=== PATIENT | male | born 1950 | race Caucasian/White ===

== ENCOUNTER 2022-11-01 20:36 | Inpatient (IN) | payer OTHER ==
[2022-11-01] MEDS ORDERED: LACTATED RINGERS SOLUTION 1000 ML INFUS.BAG IV ONE (20:55)
[2022-11-01] MEDS ORDERED: methylPREDNISolone NA SUCC 125 MG/2 ML VIAL IVPB ONE (20:55)
[2022-11-01] MEDS ORDERED: MEROPENEM 1 GM in DEXTROSE 5%-WATER 100 ML IVPB ONE (20:59)
[2022-11-01] MEDS ORDERED: VANCOMYCIN 1 GM in D5W (PRE-DOCKED) 1,000 MG/250 ML (RESTRICTED TO ID ONLY IVPB ONE (20:59)
[2022-11-01] MEDS ORDERED: ALBUTEROL SO4 2.5/IPRATROPIUM 0.5 INH SOL 3 ML VIAL.NEB. NEB ONE (21:05)
[2022-11-01] MEDS ORDERED: MEROPENEM 1 GM VIAL (RESTRICTED TO ID) IVPB ONE (21:05)
[2022-11-01] MEDS ORDERED: methylPREDNISolone NA SUCC 125 MG/2 ML VIAL ONE (21:06)
[2022-11-01] MEDS ORDERED: ASPIRIN 81 MG CHEWABLE TABLETS PO ONE (21:12)
[2022-11-01 21:20] LABS: VENOUS O2 SATURATION 26.2 % (70-80); VENOUS PCO2 56.2 mmHg (38-52); VENOUS PH 7.303 (7.310-7.410)
[2022-11-01] MEDS: ALBUTEROL SO4 2.5/IPRATROPIUM 0.5 INH SOL 3 ML VIAL.NEB. NEB SCH ×2 (21:22→21:40)
[2022-11-01 21:24] LABS: BASO % 0.1 % (0-2.0); EOS % 0.1 % (0-4.5); HEMATOCRIT 34.3 % (35.4-49); HEMOGLOBIN 11.3 GM/dL (11.7-16.9); LYMPH % 1.2 % (8-40); MCH 29.5 pg (25.7-33.7); MCHC 33.1 g/dl (32.0-35.9); MEAN CELL VOLUME 89.2 fl (80-96); MEAN PLT VOLUME 6.6 fl (7.5-11.1); MONO % 0.2 % (3.8-10.2); NEUT % 98.4 % (42.8-82.8); PLATELET COUNT 382 10^3/uL (134-434); RBC 3.85 M/mm3 (4.00-5.60); RDW 15.2 % (11.9-15.9); WHITE BLOOD COUNT 9.2 K/mm3 (4.0-10.0)
[2022-11-01 21:34] LABS: INR 1.93 (0.83-1.09); PROTHROMBIN TIME (PATIENT) 22.2 SEC (9.7-13.0)
[2022-11-01 21:37] LABS: ACTIVATED PTT 31.4 SECONDS (25.2-36.5)
[2022-11-01] MEDS ORDERED: VANCOMYCIN/WATER FOR INJ (PEG) 1,000 MG/200 ML BAG IVPB ONE (21:47)
[2022-11-01 21:50] LABS: ALBUMIN 2.6 g/dl (3.4-5.0); ANISOCYTOSIS 2+; BLOOD UREA NITROGEN 53.4 mg/dL (7-18); CALCIUM 9.1 mg/dL (8.5-10.1); MACROCYTOSIS 0
[2022-11-01] MEDS ORDERED: ACETAMINOPHEN 1000 MG/100 ML BAG IVPB ONE (21:51)
[2022-11-01 21:53] LABS: CREATININE 1.8 mg/dL (0.55-1.3)
[2022-11-01] MEDS ORDERED: ACETAMINOPHEN INJECTION 100 ML IVPB ONE (21:53)
[2022-11-01 21:54] LABS: BILIRUBIN,TOTAL 0.6 mg/dL (0.2-1); TOT PROT 5.9 g/dl (6.4-8.2)
[2022-11-01 21:57] LABS: LACTIC ACID 5.7 mmol/L (0.4-2.0)
[2022-11-01] MEDS ORDERED: DEXTROSE 5%-LACTATED RINGERS 1,000 ML IV SCH ×2 (22:00)
[2022-11-01] MEDS ORDERED: LORazepam 2 MG/ML SDV VIAL IVPUSH ONE (22:32)
[2022-11-01 23:39] LABS: LACTIC ACID 5.4 mmol/L (0.4-2.0)
[2022-11-01] MEDS: NOREPINEPHRINE BITARTRATE/D5W 8 MG/250 ML BAG IVPB SCH (23:57)
[2022-11-02 01:21] LABS: EPI CELLS >36 /uL (0-25.1); HYALINE CASTS 18 /uL (0-3.1); PH,URINE 8.5 (5.0-8.0); URINE APPEARANCE CLOUDY; URINE BACTERIA >9,000 /uL (0-1359); URINE BILIRUBIN NEGATIVE (NEGATIVE); URINE COLOR RED; URINE GLUCOSE (UA) NEGATIVE (NEGATIVE); URINE KETONE NEGATIVE (NEGATIVE); URINE LEUK ESTERASE 2+ (NEGATIVE); URINE NITRITE POSITIVE (NEGATIVE); URINE PROTEIN 2+ (NEGATIVE); URINE UROBILINOGEN 0.2 mg/dL (0.2-1.0); URINE WBC 83 /uL (0-25.8)
[2022-11-02] MEDS ORDERED: LACTATED RINGERS SOLUTION 1000 ML INFUS.BAG IV SCH (03:15)
[2022-11-02 03:34] LABS: URINE RBC 5123.2 /uL (0-23.9)
[2022-11-02] MEDS: HYDROCORTISONE SOD SUCCINATE 100 MG/2 ML VIAL IVPB SCH ×4 (04:06→20:03)
[2022-11-02] MEDS: VASOPRESSIN 40 UNITS/100 ML BAG IV SCH (04:46)
[2022-11-02] MEDS ORDERED: LACTATED RINGERS SOLUTION 1,000 ML/1,000 ML INFUS.BAG IV STA (05:57)
[2022-11-02] MEDS ORDERED: ACETAMINOPHEN 325 MG TABLET (FP) PO PRN (06:08)
[2022-11-02] MEDS ORDERED: PIPERACILLIN/TAZOB 3.375 GM 3.375 GM in DEXTROSE 5%-WATER - 50 ML IVPB SCH ×2 (06:15→10:00)
[2022-11-02] MEDS ORDERED: VANCOMYCIN 750 MG PREMIX BAG (RESTRICTED TO ID ONLY) SCH (06:15)
[2022-11-02] MEDS ORDERED: VANCOMYCIN/WATER FOR INJ (PEG) 750 MG/150 ML BAG IVPB SCH ×2 (06:30→21:00)
[2022-11-02 08:04] LABS: HEMATOCRIT 28.3 % (35.4-49); HEMOGLOBIN 9.4 GM/dL (11.7-16.9); MCH 29.4 pg (25.7-33.7); MCHC 33.3 g/dl (32.0-35.9); MEAN CELL VOLUME 88.5 fl (80-96); MEAN PLT VOLUME 7.7 fl (7.5-11.1); PLATELET COUNT 298 10^3/uL (134-434); RDW 15.5 % (11.9-15.9)
[2022-11-02 08:06] LABS: WHITE BLOOD COUNT 40.1 K/mm3 (4.0-10.0)
[2022-11-02] MEDS: NOREPINEPHRINE BITARTRATE/D5W 8 MG/250 ML BAG IVPB SCH ×2 (08:09→20:52)
[2022-11-02 08:19] LABS: INR 1.84 (0.83-1.09); PROTHROMBIN TIME (PATIENT) 21.2 SEC (9.7-13.0)
[2022-11-02 08:22] LABS: ACTIVATED PTT 34.7 SECONDS (25.2-36.5)
[2022-11-02 08:24] LABS: ALBUMIN 2.2 g/dl (3.4-5.0); CALCIUM 8.3 mg/dL (8.5-10.1); MAGNESIUM 1.7 mg/dL (1.8-2.4)
[2022-11-02 08:26] LABS: PHOSPHOROUS 2.6 mg/dL (2.5-4.9)
[2022-11-02 08:28] LABS: CREATININE 1.7 mg/dL (0.55-1.3)
[2022-11-02 08:29] LABS: BILIRUBIN,TOTAL 0.4 mg/dL (0.2-1)
[2022-11-02 08:54] LABS: LACTIC ACID 3.7 mmol/L (0.4-2.0)
[2022-11-02 09:38] LABS: ANISOCYTOSIS 3+; MACROCYTOSIS 0
[2022-11-02] MEDS: MUPIROCIN 2% TOPICAL OINTMENT FOR DECOLONIZATION NS SCH ×2 (12:00→21:42)
[2022-11-02] MEDS: HEPARIN NA (PORCINE) 5,000 UNITS/ML 1ML VIAL SQ SCH ×2 (14:40→21:51)
[2022-11-02] MEDS: MEROPENEM 1 GM in DEXTROSE 5%-WATER 100 ML IVPB SCH (17:48)
[2022-11-02] MEDS: AMINO ACIDS/PROTEIN HYDROLYS 30 ML LIQUID.PKT PO SCH (17:48)
[2022-11-02] MEDS: CHLORHEXIDINE GLUCONATE 4% CLEANSER FOR DECOLONIZATION TP SCH (21:51)
[2022-11-02] MEDS ORDERED: LACTATED RINGERS SOLUTION 1000 ML INFUS.BAG IV ONE (22:15)
[2022-11-03] MEDS: MEROPENEM 1 GM in DEXTROSE 5%-WATER 100 ML IVPB SCH ×3 (01:09→17:34)
[2022-11-03] MEDS: NOREPINEPHRINE BITARTRATE/D5W 8 MG/250 ML BAG IVPB SCH ×3 (01:09→05:30)
[2022-11-03] MEDS: HYDROCORTISONE SOD SUCCINATE 100 MG/2 ML VIAL IVPB SCH ×4 (02:05→21:28)
[2022-11-03] MEDS ORDERED: AMIODARONE IN DEXTROSE,ISO-OSM 150 MG/100 ML BAG IVPB ONE (04:10)
[2022-11-03] MEDS ORDERED: LACTATED RINGERS SOLUTION 1000 ML INFUS.BAG IV ONE (04:15)
[2022-11-03] MEDS: AMIODARONE IN DEXTROSE,ISO-OSM 360 MG/200 ML BAG IV SCH ×3 (04:45→21:28)
[2022-11-03] MEDS: VASOPRESSIN 40 UNITS/100 ML BAG IV SCH ×2 (04:46→15:16)
[2022-11-03 08:14] LABS: HEMATOCRIT 29.8 % (35.4-49); MCH 30.1 pg (25.7-33.7); MCHC 33.5 g/dl (32.0-35.9); MEAN CELL VOLUME 89.8 fl (80-96); MEAN PLT VOLUME 8.4 fl (7.5-11.1); PLATELET COUNT 209 10^3/uL (134-434); RBC 3.32 M/mm3 (4.00-5.60); RDW 15.3 % (11.9-15.9)
[2022-11-03 08:17] LABS: BLOOD UREA NITROGEN 53.1 mg/dL (7-18); MAGNESIUM 1.8 mg/dL (1.8-2.4)
[2022-11-03 08:19] LABS: CREATININE 1.5 mg/dL (0.55-1.3); PHOSPHOROUS 4.5 mg/dL (2.5-4.9)
[2022-11-03 08:54] LABS: WHITE BLOOD COUNT 46.8 K/mm3 (4.0-10.0)
[2022-11-03] MEDS: MULTIVITAMINS (DAILY MVI) TABLET (FP) PO SCH (09:49)
[2022-11-03] MEDS: AMINO ACIDS/PROTEIN HYDROLYS 30 ML LIQUID.PKT PO SCH ×2 (09:49→17:34)
[2022-11-03] MEDS: ASCORBIC ACID 500 MG TABLET (FP) PO SCH (09:49)
[2022-11-03] MEDS: APIXABAN 5 MG TABLET PO SCH ×2 (09:49→21:28)
[2022-11-03] MEDS: MUPIROCIN 2% TOPICAL OINTMENT FOR DECOLONIZATION NS SCH ×2 (09:58→21:35)
[2022-11-03] MEDS: CHLORHEXIDINE GLUCONATE 4% CLEANSER FOR DECOLONIZATION TP SCH (21:50)
[2022-11-04] MEDS: MEROPENEM 1 GM in DEXTROSE 5%-WATER 100 ML IVPB SCH ×3 (02:21→17:41)
[2022-11-04] MEDS: HYDROCORTISONE SOD SUCCINATE 100 MG/2 ML VIAL IVPB SCH ×2 (02:49→09:35)
[2022-11-04] MEDS: AMIODARONE IN DEXTROSE,ISO-OSM 360 MG/200 ML BAG IV SCH (04:15)
[2022-11-04] MEDS: VASOPRESSIN 40 UNITS/100 ML BAG IV SCH (05:44)
[2022-11-04] MEDS: NOREPINEPHRINE BITARTRATE/D5W 8 MG/250 ML BAG IVPB SCH (05:45)
[2022-11-04 07:36] LABS: HEMATOCRIT 26.3 % (35.4-49); HEMOGLOBIN 8.6 GM/dL (11.7-16.9); MCH 29.1 pg (25.7-33.7); MCHC 32.7 g/dl (32.0-35.9); MEAN CELL VOLUME 89.1 fl (80-96); MEAN PLT VOLUME 8.7 fl (7.5-11.1); PLATELET COUNT 110 10^3/uL (134-434); RBC 2.95 M/mm3 (4.00-5.60); RDW 15.8 % (11.9-15.9)
[2022-11-04 07:45] LABS: INR 2.01 (0.83-1.09); PROTHROMBIN TIME (PATIENT) 23.2 SEC (9.7-13.0)
[2022-11-04 07:47] LABS: ACTIVATED PTT 39.2 SECONDS (25.2-36.5)
[2022-11-04 07:50] LABS: WHITE BLOOD COUNT 41.8 K/mm3 (4.0-10.0)
[2022-11-04 07:53] LABS: ALBUMIN 2.1 g/dl (3.4-5.0); CALCIUM 7.9 mg/dL (8.5-10.1)
[2022-11-04 07:56] LABS: BILIRUBIN,DIRECT 0.2 mg/dL (0.0-0.2); CREATININE 1.3 mg/dL (0.55-1.3)
[2022-11-04 07:58] LABS: BILIRUBIN,TOTAL 0.4 mg/dL (0.2-1); TOT PROT 5.4 g/dl (6.4-8.2)
[2022-11-04] MEDS ORDERED: ALBUTEROL SO4 2.5/IPRATROPIUM 0.5 INH SOL 3 ML VIAL.NEB. NEB SCH (08:00)
[2022-11-04] MEDS: APIXABAN 5 MG TABLET PO SCH ×2 (09:35→22:08)
[2022-11-04] MEDS: AMINO ACIDS/PROTEIN HYDROLYS 30 ML LIQUID.PKT PO SCH ×2 (09:35→17:41)
[2022-11-04] MEDS: MUPIROCIN 2% TOPICAL OINTMENT FOR DECOLONIZATION NS SCH ×2 (09:35→22:07)
[2022-11-04] MEDS: PANTOPRAZOLE SODIUM 40 MG VIAL IVPUSH SCH (09:35)
[2022-11-04] MEDS: MULTIVITAMINS (DAILY MVI) TABLET (FP) PO SCH (09:35)
[2022-11-04] MEDS: ASCORBIC ACID 500 MG TABLET (FP) PO SCH (09:36)
[2022-11-04] MEDS: ALBUTEROL SO4 2.5/IPRATROPIUM 0.5 INH SOL 3 ML VIAL.NEB. NEB SCH ×3 (11:20→20:42)
[2022-11-04] MEDS: METOPROLOL TARTRATE 25 MG TABLET (FP) PO SCH ×3 (11:33→23:14)
[2022-11-04] MEDS: methylPREDNISolone NA SUCC 40 MG/1 ML VIAL IVPUSH SCH (17:42)
[2022-11-04] MEDS: CHLORHEXIDINE GLUCONATE 4% CLEANSER FOR DECOLONIZATION TP SCH (22:08)
[2022-11-05] MEDS: methylPREDNISolone NA SUCC 40 MG/1 ML VIAL IVPUSH SCH ×2 (02:31→09:47)
[2022-11-05] MEDS: MEROPENEM 1 GM in DEXTROSE 5%-WATER 100 ML IVPB SCH ×3 (02:31→17:13)
[2022-11-05] MEDS: ALBUTEROL SO4 2.5/IPRATROPIUM 0.5 INH SOL 3 ML VIAL.NEB. NEB SCH ×7 (04:35→23:36)
[2022-11-05] MEDS ORDERED: AMIODARONE IN DEXTROSE,ISO-OSM 150 MG/100 ML BAG IVPB ONE (05:15)
[2022-11-05] MEDS: VASOPRESSIN 40 UNITS/100 ML BAG IV SCH (05:29)
[2022-11-05] MEDS: NOREPINEPHRINE BITARTRATE/D5W 8 MG/250 ML BAG IVPB SCH (05:30)
[2022-11-05 07:10] LABS: HEMATOCRIT 27.1 % (35.4-49); HEMOGLOBIN 8.9 GM/dL (11.7-16.9); MCH 29.1 pg (25.7-33.7); MCHC 32.8 g/dl (32.0-35.9); MEAN CELL VOLUME 88.7 fl (80-96); MEAN PLT VOLUME 8.8 fl (7.5-11.1); PLATELET COUNT 89 10^3/uL (134-434); RBC 3.06 M/mm3 (4.00-5.60); RDW 15.2 % (11.9-15.9)
[2022-11-05 07:17] LABS: WHITE BLOOD COUNT 40.4 K/mm3 (4.0-10.0)
[2022-11-05 07:37] LABS: CHLORIDE 105 mmol/L (98-107); SODIUM 140 mmol/L (136-145)
[2022-11-05] MEDS ORDERED: METOPROLOL TARTRATE 5 MG/5 ML VIAL IVPUSH PRN (07:37)
[2022-11-05 07:41] LABS: ALBUMIN 2.2 g/dl (3.4-5.0); BLOOD UREA NITROGEN 64.3 mg/dL (7-18); CALCIUM 8.1 mg/dL (8.5-10.1); CO2 29 mmol/L (21-32); GLUCOSE,RANDOM 98 mg/dL (74-106)
[2022-11-05 07:44] LABS: CREATININE 1.1 mg/dL (0.55-1.3); SGOT/AST 38 U/L (15-37); SGPT/ALT 50 U/L (13-61)
[2022-11-05 07:46] LABS: BILIRUBIN,TOTAL 0.4 mg/dL (0.2-1); TOT PROT 5.6 g/dl (6.4-8.2)
[2022-11-05 07:47] LABS: ALK PHOS 112 U/L (45-117)
[2022-11-05 08:14] LABS: ANION GAP 6 MMOL/L (8-16)
[2022-11-05 08:50] LABS: MAGNESIUM 2.4 mg/dL (1.8-2.4)
[2022-11-05 08:54] LABS: PHOSPHOROUS 4.4 mg/dL (2.5-4.9)
[2022-11-05] MEDS: KCL 20 MEQ PREMIX BAG 100 ML IVPB SCH ×3 (09:19→14:29)
[2022-11-05] MEDS: PANTOPRAZOLE SODIUM 40 MG VIAL IVPUSH SCH (09:47)
[2022-11-05 09:50] LABS: ANISOCYTOSIS 0; HELMET CELLS 0; HOWELL-JOLLY BODIES 0; MACROCYTOSIS 0; OVALOCYTE 0; ROULEAU 0; SICKELED CELLS 0; TARGET CELLS 0; TEAR DROP CELLS 0; TOXIC GRANULATION 0
[2022-11-05] MEDS: MUPIROCIN 2% TOPICAL OINTMENT FOR DECOLONIZATION NS SCH ×2 (09:54→21:56)
[2022-11-05] MEDS ORDERED: METOPROLOL TARTRATE 25 MG TABLET (FP) PO SCH ×2 (10:08→14:00)
[2022-11-05] MEDS: AMINO ACIDS/PROTEIN HYDROLYS 30 ML LIQUID.PKT PO SCH ×2 (10:14→16:33)
[2022-11-05] MEDS: MULTIVITAMINS (DAILY MVI) TABLET (FP) PO SCH (10:15)
[2022-11-05] MEDS: ASCORBIC ACID 500 MG TABLET (FP) PO SCH (10:15)
[2022-11-05] MEDS: APIXABAN 5 MG TABLET PO SCH (10:15)
[2022-11-05] MEDS ORDERED: METOPROLOL TARTRATE 5 MG/5 ML VIAL ONE (10:24)
[2022-11-05] MEDS: ENOXAPARIN NA (PORCINE) 60 MG/0.6 ML DISP.SYRIN SQ SCH ×2 (10:25→21:56)
[2022-11-05] MEDS: METOPROLOL TARTRATE 5 MG/5 ML VIAL IVPUSH SCH ×3 (10:41→22:04)
[2022-11-05] MEDS: AMIODARONE IN DEXTROSE,ISO-OSM 360 MG/200 ML BAG IV SCH (10:42)
[2022-11-05] MEDS: METOPROLOL TARTRATE 25 MG TABLET (FP) PO SCH (10:42)
[2022-11-05] MEDS ORDERED: ACETAMINOPHEN 1000 MG/100 ML BAG IVPB PRN (15:02)
[2022-11-05] MEDS: DEXTROSE 5%-0.45% SALINE 1,000 ML IV SCH (15:17)
[2022-11-05 16:27] LABS: BLOOD UREA NITROGEN 62.6 mg/dL (7-18); CALCIUM 7.8 mg/dL (8.5-10.1)
[2022-11-05] MEDS ORDERED: METOPROLOL TARTRATE 5 MG/5 ML VIAL IVPUSH ONE (21:56)
[2022-11-05] MEDS: MELATONIN 1 MG TABLET PO SCH (21:56)
[2022-11-05] MEDS: CHLORHEXIDINE GLUCONATE 4% CLEANSER FOR DECOLONIZATION TP SCH (21:56)
[2022-11-05] MEDS: POTASSIUM CHLORIDE ORAL LIQUID 20 MEQ/15 ML PO SCH (21:56)
[2022-11-06] MEDS: MEROPENEM 1 GM in DEXTROSE 5%-WATER 100 ML IVPB SCH ×3 (01:33→17:00)
[2022-11-06] MEDS: ALBUTEROL SO4 2.5/IPRATROPIUM 0.5 INH SOL 3 ML VIAL.NEB. NEB SCH ×5 (04:30→20:05)
[2022-11-06] MEDS: DEXTROSE 5%-0.45% SALINE 1,000 ML IV SCH ×2 (05:28→14:36)
[2022-11-06] MEDS: METOPROLOL TARTRATE 5 MG/5 ML VIAL IVPUSH SCH ×5 (05:55→23:41)
[2022-11-06 07:38] LABS: HEMATOCRIT 25.2 % (35.4-49); HEMOGLOBIN 8.3 GM/dL (11.7-16.9); MCH 28.9 pg (25.7-33.7); MCHC 33.1 g/dl (32.0-35.9); MEAN CELL VOLUME 87.3 fl (80-96); MEAN PLT VOLUME 8.7 fl (7.5-11.1); PLATELET COUNT 68 10^3/uL (134-434); RBC 2.88 M/mm3 (4.00-5.60); RDW 15.3 % (11.9-15.9); WHITE BLOOD COUNT 17.5 K/mm3 (4.0-10.0)
[2022-11-06 08:35] LABS: BLOOD UREA NITROGEN 55.5 mg/dL (7-18); CALCIUM 8.2 mg/dL (8.5-10.1)
[2022-11-06 08:38] LABS: CREATININE 1.1 mg/dL (0.55-1.3)
[2022-11-06] MEDS: MULTIVITAMINS (DAILY MVI) TABLET (FP) PO SCH (09:34)
[2022-11-06] MEDS: ASCORBIC ACID 500 MG TABLET (FP) PO SCH (09:34)
[2022-11-06] MEDS: POTASSIUM CHLORIDE ORAL LIQUID 20 MEQ/15 ML PO SCH ×2 (09:34→21:13)
[2022-11-06] MEDS: AMINO ACIDS/PROTEIN HYDROLYS 30 ML LIQUID.PKT PO SCH ×2 (09:34→16:59)
[2022-11-06] MEDS: methylPREDNISolone NA SUCC 40 MG/1 ML VIAL IVPUSH SCH (09:39)
[2022-11-06] MEDS: PANTOPRAZOLE SODIUM 40 MG VIAL IVPUSH SCH (09:39)
[2022-11-06] MEDS: ENOXAPARIN NA (PORCINE) 60 MG/0.6 ML DISP.SYRIN SQ SCH ×2 (09:40→21:13)
[2022-11-06] MEDS: MUPIROCIN 2% TOPICAL OINTMENT FOR DECOLONIZATION NS SCH (09:43)
[2022-11-06 16:03] VITALS: BMI 19.3
[2022-11-06] MEDS ORDERED: ACETAMINOPHEN 1000 MG/100 ML BAG IVPB ONE (20:08)
[2022-11-06] MEDS: MELATONIN 1 MG TABLET PO SCH (21:13)
[2022-11-06] MEDS ORDERED: METOPROLOL TARTRATE 25 MG TABLET (FP) PO SCH (22:00)
[2022-11-06] MEDS ORDERED: APIXABAN 5 MG TABLET PO SCH (22:00)
[2022-11-07] MEDS: METOPROLOL TARTRATE 5 MG/5 ML VIAL IVPUSH SCH ×5 (00:39→21:35)
[2022-11-07] MEDS: MEROPENEM 1 GM in DEXTROSE 5%-WATER 100 ML IVPB SCH ×3 (01:16→17:02)
[2022-11-07] MEDS: ALBUTEROL SO4 2.5/IPRATROPIUM 0.5 INH SOL 3 ML VIAL.NEB. NEB SCH ×4 (04:00→20:17)
[2022-11-07 07:36] LABS: HEMATOCRIT 24.6 % (35.4-49); HEMOGLOBIN 8.3 GM/dL (11.7-16.9); MCH 29.8 pg (25.7-33.7); MCHC 33.9 g/dl (32.0-35.9); MEAN CELL VOLUME 87.9 fl (80-96); MEAN PLT VOLUME 9.2 fl (7.5-11.1); PLATELET COUNT 84 10^3/uL (134-434); RDW 15.3 % (11.9-15.9); WHITE BLOOD COUNT 11.8 K/mm3 (4.0-10.0)
[2022-11-07 08:07] LABS: CALCIUM 8.1 mg/dL (8.5-10.1)
[2022-11-07 08:08] LABS: BLOOD UREA NITROGEN 47.6 mg/dL (7-18); MAGNESIUM 2.4 mg/dL (1.8-2.4)
[2022-11-07 08:10] LABS: PHOSPHOROUS 2.4 mg/dL (2.5-4.9)
[2022-11-07] MEDS: POTASSIUM CHLORIDE ORAL LIQUID 20 MEQ/15 ML PO SCH (09:12)
[2022-11-07] MEDS: ASCORBIC ACID 500 MG TABLET (FP) PO SCH (09:12)
[2022-11-07] MEDS: MULTIVITAMINS (DAILY MVI) TABLET (FP) PO SCH (09:12)
[2022-11-07 09:14] LABS: ANISOCYTOSIS 0; HELMET CELLS 0; HOWELL-JOLLY BODIES 0; MACROCYTOSIS 0; OVALOCYTE 0; ROULEAU 0; SICKELED CELLS 0; TARGET CELLS 0; TEAR DROP CELLS 0; TOXIC GRANULATION 0
[2022-11-07] MEDS: ENOXAPARIN NA (PORCINE) 60 MG/0.6 ML DISP.SYRIN SQ SCH ×2 (09:14→22:06)
[2022-11-07] MEDS: PANTOPRAZOLE SODIUM 40 MG VIAL IVPUSH SCH (09:15)
[2022-11-07] MEDS: AMINO ACIDS/PROTEIN HYDROLYS 30 ML LIQUID.PKT PO SCH ×2 (09:15→16:58)
[2022-11-07] MEDS: methylPREDNISolone NA SUCC 40 MG/1 ML VIAL IVPUSH SCH (09:17)
[2022-11-07] MEDS: MELATONIN 1 MG TABLET PO SCH (22:07)
[2022-11-08] MEDS: ACETAMINOPHEN 1000 MG/100 ML BAG IVPB SCH ×4 (00:25→17:25)
[2022-11-08] MEDS: MEROPENEM 1 GM in DEXTROSE 5%-WATER 100 ML IVPB SCH ×2 (01:55→09:02)
[2022-11-08] MEDS: METOPROLOL TARTRATE 5 MG/5 ML VIAL IVPUSH SCH ×4 (03:07→22:38)
[2022-11-08 07:11] LABS: BASO % 0.1 % (0-2.0); HEMATOCRIT 28.3 % (35.4-49); HEMOGLOBIN 9.4 GM/dL (11.7-16.9); LYMPH % 3.8 % (8-40); MCH 29.4 pg (25.7-33.7); MCHC 33.4 g/dl (32.0-35.9); MEAN CELL VOLUME 88.1 fl (80-96); MEAN PLT VOLUME 8.5 fl (7.5-11.1); MONO % 6.6 % (3.8-10.2); NEUT % 89.5 % (42.8-82.8); PLATELET COUNT 95 10^3/uL (134-434); RBC 3.21 M/mm3 (4.00-5.60); RDW 15.4 % (11.9-15.9); WHITE BLOOD COUNT 9.2 K/mm3 (4.0-10.0)
[2022-11-08] MEDS: ALBUTEROL SO4 2.5/IPRATROPIUM 0.5 INH SOL 3 ML VIAL.NEB. NEB SCH ×4 (07:20→20:20)
[2022-11-08 07:27] LABS: BLOOD UREA NITROGEN 47.2 mg/dL (7-18); CALCIUM 8.4 mg/dL (8.5-10.1); MAGNESIUM 2.4 mg/dL (1.8-2.4)
[2022-11-08 07:30] LABS: PHOSPHOROUS 1.8 mg/dL (2.5-4.9)
[2022-11-08 07:32] LABS: BILIRUBIN,TOTAL 0.4 mg/dL (0.2-1)
[2022-11-08] MEDS: AMINO ACIDS/PROTEIN HYDROLYS 30 ML LIQUID.PKT PO SCH ×3 (09:00→17:00)
[2022-11-08] MEDS: PANTOPRAZOLE SODIUM 40 MG VIAL IVPUSH SCH (09:03)
[2022-11-08] MEDS: ENOXAPARIN NA (PORCINE) 60 MG/0.6 ML DISP.SYRIN SQ SCH ×2 (09:03→22:39)
[2022-11-08] MEDS: methylPREDNISolone NA SUCC 40 MG/1 ML VIAL IVPUSH SCH (09:04)
[2022-11-08] MEDS: ASCORBIC ACID 500 MG TABLET (FP) PO SCH (09:05)
[2022-11-08] MEDS: MULTIVITAMINS (DAILY MVI) TABLET (FP) PO SCH ×2 (09:05→09:26)
[2022-11-08] MEDS ORDERED: SODIUM PHOSPHATE IVPB ONE (10:30)
[2022-11-08] MEDS ORDERED: SODIUM CHLORIDE IVPB ONE (10:30)
[2022-11-08] MEDS: AMINO ACIDS 4.25%/D5W 1,000 ML IV SCH (12:25)
[2022-11-08] MEDS ORDERED: FAT EMULSION/OLIVE/SOY (CLINOLIPID) 500 ML EMULSION IV SCH (22:00)
[2022-11-08] MEDS ORDERED: FAT EMULSION/OLIVE/SOY/PHOSPHO 500 ML IV SCH (22:00)
[2022-11-08] MEDS: MELATONIN 1 MG TABLET PO SCH (22:36)
[2022-11-08] MEDS: FAT EMULSION/OLIVE/SOY/PHOSPHO 250 ML IV SCH (22:39)
[2022-11-08] MEDS ORDERED: ACETAMINOPHEN 1000 MG/100 ML BAG IVPB ONE (23:46)
[2022-11-09] MEDS: AMINO ACIDS 4.25%/D5W 1,000 ML IV SCH (00:15)
[2022-11-09] MEDS: ALBUTEROL SO4 2.5/IPRATROPIUM 0.5 INH SOL 3 ML VIAL.NEB. NEB SCH ×7 (01:21→23:21)
[2022-11-09] MEDS: METOPROLOL TARTRATE 5 MG/5 ML VIAL IVPUSH SCH ×4 (02:30→21:25)
[2022-11-09 07:44] LABS: BASO % 0.1 % (0-2.0); EOS % 0.2 % (0-4.5); HEMATOCRIT 23.4 % (35.4-49); HEMOGLOBIN 8.2 GM/dL (11.7-16.9); LYMPH % 5.8 % (8-40); MCH 30.7 pg (25.7-33.7); MCHC 35.1 g/dl (32.0-35.9); MEAN CELL VOLUME 87.6 fl (80-96); MEAN PLT VOLUME 8.5 fl (7.5-11.1); MONO % 5.5 % (3.8-10.2); NEUT % 88.4 % (42.8-82.8); PLATELET COUNT 128 10^3/uL (134-434); RBC 2.67 M/mm3 (4.00-5.60); WHITE BLOOD COUNT 7.3 K/mm3 (4.0-10.0)
[2022-11-09 07:52] LABS: ALBUMIN 1.8 g/dl (3.4-5.0); BLOOD UREA NITROGEN 48.2 mg/dL (7-18); CALCIUM 7.7 mg/dL (8.5-10.1)
[2022-11-09 07:55] LABS: CREATININE 0.9 mg/dL (0.55-1.3); PHOSPHOROUS 2.8 mg/dL (2.5-4.9)
[2022-11-09 07:57] LABS: BILIRUBIN,TOTAL 0.3 mg/dL (0.2-1); TOT PROT 4.4 g/dl (6.4-8.2)
[2022-11-09] MEDS: AMINO ACIDS/PROTEIN HYDROLYS 30 ML LIQUID.PKT PO SCH ×2 (08:32→18:11)
[2022-11-09] MEDS: ENOXAPARIN NA (PORCINE) 60 MG/0.6 ML DISP.SYRIN SQ SCH ×2 (10:33→21:26)
[2022-11-09] MEDS: ASCORBIC ACID 500 MG TABLET (FP) PO SCH (10:34)
[2022-11-09] MEDS: methylPREDNISolone NA SUCC 40 MG/1 ML VIAL IVPUSH SCH (10:34)
[2022-11-09] MEDS: MULTIVITAMINS (DAILY MVI) TABLET (FP) PO SCH (10:34)
[2022-11-09] MEDS: PANTOPRAZOLE SODIUM 40 MG VIAL IVPUSH SCH (10:34)
[2022-11-09] MEDS: ACETAMINOPHEN 1000 MG/100 ML BAG IVPB PRN (18:55)
[2022-11-09] MEDS: POTASSIUM CHLORIDE 20 MEQ in AMINO ACIDS 4.25%/D5W 1,000 ML IV SCH ×2 (18:57→21:09)
[2022-11-09] MEDS: FAT EMULSION/OLIVE/SOY/PHOSPHO 250 ML IV SCH (21:26)
[2022-11-09] MEDS: MELATONIN 1 MG TABLET PO SCH (21:27)
[2022-11-10] MEDS: ALBUTEROL SO4 2.5/IPRATROPIUM 0.5 INH SOL 3 ML VIAL.NEB. NEB SCH ×5 (02:22→20:35)
[2022-11-10] MEDS: METOPROLOL TARTRATE 5 MG/5 ML VIAL IVPUSH SCH ×4 (02:59→21:06)
[2022-11-10 07:26] LABS: HEMATOCRIT 25.3 % (35.4-49); HEMOGLOBIN 8.8 GM/dL (11.7-16.9); MCH 30.6 pg (25.7-33.7); MEAN CELL VOLUME 87.6 fl (80-96); MEAN PLT VOLUME 8.5 fl (7.5-11.1); PLATELET COUNT 168 10^3/uL (134-434); RBC 2.89 M/mm3 (4.00-5.60); RDW 14.9 % (11.9-15.9); WHITE BLOOD COUNT 8.2 K/mm3 (4.0-10.0)
[2022-11-10] MEDS: ACETAMINOPHEN 1000 MG/100 ML BAG IVPB PRN (07:33)
[2022-11-10 07:47] LABS: INR 1.2 (0.83-1.09); PROTHROMBIN TIME (PATIENT) 13.9 SEC (9.7-13.0)
[2022-11-10 08:48] LABS: CALCIUM 7.9 mg/dL (8.5-10.1)
[2022-11-10 08:52] LABS: CREATININE 0.9 mg/dL (0.55-1.3); PHOSPHOROUS 2.2 mg/dL (2.5-4.9)
[2022-11-10 09:04] LABS: ANISOCYTOSIS 0; HELMET CELLS 0; HOWELL-JOLLY BODIES 0; MACROCYTOSIS 0; OVALOCYTE 0; ROULEAU 0; SICKELED CELLS 0; TARGET CELLS 0; TEAR DROP CELLS 0; TOXIC GRANULATION 0
[2022-11-10] MEDS: PANTOPRAZOLE SODIUM 40 MG VIAL IVPUSH SCH (09:35)
[2022-11-10] MEDS: AMINO ACIDS/PROTEIN HYDROLYS 30 ML LIQUID.PKT PO SCH ×2 (09:35→18:07)
[2022-11-10] MEDS: MULTIVITAMINS (DAILY MVI) TABLET (FP) PO SCH (09:37)
[2022-11-10] MEDS: methylPREDNISolone NA SUCC 40 MG/1 ML VIAL IVPUSH SCH ×2 (09:37→09:41)
[2022-11-10] MEDS: ASCORBIC ACID 500 MG TABLET (FP) PO SCH (09:37)
[2022-11-10] MEDS: ENOXAPARIN NA (PORCINE) 60 MG/0.6 ML DISP.SYRIN SQ SCH (09:38)
[2022-11-10] MEDS: SODIUM PHOSPHATE IV SCH ×2 (10:26→22:26)
[2022-11-10] MEDS: AMINO ACIDS IV SCH ×2 (10:26→22:26)
[2022-11-10] MEDS: [UNRECOGNIZED DRUG - OTHER] IV SCH ×2 (10:26→22:26)
[2022-11-10] MEDS: MELATONIN 1 MG TABLET PO SCH (21:32)
[2022-11-10] MEDS: FAT EMULSION/OLIVE/SOY/PHOSPHO 250 ML IV SCH (21:32)
[2022-11-11] MEDS: ALBUTEROL SO4 2.5/IPRATROPIUM 0.5 INH SOL 3 ML VIAL.NEB. NEB SCH ×6 (00:02→20:20)
[2022-11-11] MEDS: METOPROLOL TARTRATE 5 MG/5 ML VIAL IVPUSH SCH ×4 (03:43→21:56)
[2022-11-11] MEDS: AMINO ACIDS/PROTEIN HYDROLYS 30 ML LIQUID.PKT PO SCH ×2 (08:21→17:09)
[2022-11-11] MEDS: PANTOPRAZOLE SODIUM 40 MG VIAL IVPUSH SCH (10:21)
[2022-11-11] MEDS: methylPREDNISolone NA SUCC 40 MG/1 ML VIAL IVPUSH SCH (10:21)
[2022-11-11] MEDS: ASCORBIC ACID 500 MG TABLET (FP) PO SCH (10:23)
[2022-11-11] MEDS: MULTIVITAMINS (DAILY MVI) TABLET (FP) PO SCH (10:23)
[2022-11-11] MEDS: SODIUM PHOSPHATE IV SCH ×2 (11:16→21:57)
[2022-11-11] MEDS: [UNRECOGNIZED DRUG - OTHER] IV SCH ×2 (11:16→21:57)
[2022-11-11] MEDS: AMINO ACIDS IV SCH ×2 (11:16→21:57)
[2022-11-11] MEDS ORDERED: MIDAZOLAM HCL 2 MG/2 ML SINGLE DOSE VIAL ONE (15:10)
[2022-11-11] MEDS ORDERED: FENTANYL CITRATE/PF 50 MCG/ML VIAL ONE ×2 (15:10→15:37)
[2022-11-11] MEDS: FENTANYL CITRATE/PF 50 MCG/ML VIAL IVPUSH SCH ×2 (15:25→15:40)
[2022-11-11] MEDS: MIDAZOLAM HCL 2 MG/2 ML SINGLE DOSE VIAL IVPUSH SCH ×2 (15:25→15:35)
[2022-11-11] MEDS: ACETAMINOPHEN 1000 MG/100 ML BAG IVPB PRN (18:30)
[2022-11-11] MEDS: FAT EMULSION/OLIVE/SOY/PHOSPHO 250 ML IV SCH (21:56)
[2022-11-11] MEDS: MELATONIN 1 MG TABLET PO SCH (21:57)
[2022-11-12] MEDS: METOPROLOL TARTRATE 5 MG/5 ML VIAL IVPUSH SCH ×4 (02:26→20:16)
[2022-11-12] MEDS: ACETAMINOPHEN 1000 MG/100 ML BAG IVPB PRN (02:31)
[2022-11-12 07:41] LABS: BASO % 0.2 % (0-2.0); EOS % 0.3 % (0-4.5); HEMATOCRIT 23.4 % (35.4-49); HEMOGLOBIN 8.1 GM/dL (11.7-16.9); LYMPH % 5.1 % (8-40); MCH 30.2 pg (25.7-33.7); MCHC 34.6 g/dl (32.0-35.9); MEAN CELL VOLUME 87.4 fl (80-96); MEAN PLT VOLUME 8.8 fl (7.5-11.1); MONO % 4.1 % (3.8-10.2); NEUT % 90.3 % (42.8-82.8); PLATELET COUNT 208 10^3/uL (134-434); RBC 2.68 M/mm3 (4.00-5.60); RDW 14.5 % (11.9-15.9); WHITE BLOOD COUNT 6.7 K/mm3 (4.0-10.0)
[2022-11-12] MEDS: ALBUTEROL SO4 2.5/IPRATROPIUM 0.5 INH SOL 3 ML VIAL.NEB. NEB SCH ×5 (08:06→20:05)
[2022-11-12 09:05] LABS: ALBUMIN 1.8 g/dl (3.4-5.0); CALCIUM 7.7 mg/dL (8.5-10.1)
[2022-11-12 09:06] LABS: BLOOD UREA NITROGEN 46.9 mg/dL (7-18); MAGNESIUM 1.7 mg/dL (1.8-2.4)
[2022-11-12 09:07] LABS: CREATININE 0.7 mg/dL (0.55-1.3); PHOSPHOROUS 3.9 mg/dL (2.5-4.9)
[2022-11-12 09:09] LABS: BILIRUBIN,TOTAL 0.3 mg/dL (0.2-1); TOT PROT 4.2 g/dl (6.4-8.2)
[2022-11-12] MEDS: PANTOPRAZOLE SODIUM 40 MG VIAL IVPUSH SCH (10:48)
[2022-11-12] MEDS: ENOXAPARIN NA (PORCINE) 60 MG/0.6 ML DISP.SYRIN SQ SCH ×2 (10:48→21:49)
[2022-11-12] MEDS: methylPREDNISolone NA SUCC 40 MG/1 ML VIAL IVPUSH SCH (10:49)
[2022-11-12] MEDS: ASCORBIC ACID 500 MG TABLET (FP) PO SCH (10:49)
[2022-11-12] MEDS: MULTIVITAMINS (DAILY MVI) TABLET (FP) PO SCH (10:49)
[2022-11-12] MEDS: AMINO ACIDS/PROTEIN HYDROLYS 30 ML LIQUID.PKT PO SCH ×2 (10:50→16:54)
[2022-11-12] MEDS ORDERED: ACETAMINOPHEN 1000 MG/100 ML BAG IVPB ONE (14:30)
[2022-11-12] MEDS: AMINO ACIDS IV SCH (15:56)
[2022-11-12] MEDS: [UNRECOGNIZED DRUG - OTHER] IV SCH (15:56)
[2022-11-12] MEDS: SODIUM PHOSPHATE IV SCH (15:56)
[2022-11-12] MEDS: ACETAMINOPHEN 650 MG/20.3 ML ORAL SOLUTION (CUPS) PO PRN (21:48)
[2022-11-12] MEDS: MELATONIN 1 MG TABLET PO SCH (21:49)
[2022-11-13] MEDS: ALBUTEROL SO4 2.5/IPRATROPIUM 0.5 INH SOL 3 ML VIAL.NEB. NEB SCH ×7 (00:05→23:57)
[2022-11-13] MEDS: METOPROLOL TARTRATE 5 MG/5 ML VIAL IVPUSH SCH ×3 (02:45→15:00)
[2022-11-13] MEDS: ACETAMINOPHEN 650 MG/20.3 ML ORAL SOLUTION (CUPS) PO PRN (05:45)
[2022-11-13 08:07] LABS: BASO % 0.1 % (0-2.0); EOS % 0.3 % (0-4.5); HEMATOCRIT 22.8 % (35.4-49); HEMOGLOBIN 7.9 GM/dL (11.7-16.9); LYMPH % 5.7 % (8-40); MCH 30.1 pg (25.7-33.7); MCHC 34.7 g/dl (32.0-35.9); MEAN CELL VOLUME 86.7 fl (80-96); MEAN PLT VOLUME 7.8 fl (7.5-11.1); MONO % 5.6 % (3.8-10.2); NEUT % 88.3 % (42.8-82.8); PLATELET COUNT 236 10^3/uL (134-434); RBC 2.63 M/mm3 (4.00-5.60)
[2022-11-13 08:26] LABS: ALBUMIN 1.8 g/dl (3.4-5.0); BLOOD UREA NITROGEN 45.5 mg/dL (7-18); CALCIUM 7.6 mg/dL (8.5-10.1); MAGNESIUM 1.7 mg/dL (1.8-2.4)
[2022-11-13] MEDS ORDERED: SENNOSIDES 8.6MG TABLET (FP) PO PRN (08:26)
[2022-11-13 08:29] LABS: CREATININE 0.8 mg/dL (0.55-1.3); PHOSPHOROUS 3.3 mg/dL (2.5-4.9)
[2022-11-13 08:31] LABS: BILIRUBIN,TOTAL 0.4 mg/dL (0.2-1); TOT PROT 4.2 g/dl (6.4-8.2)
[2022-11-13] MEDS: PANTOPRAZOLE SODIUM 40 MG VIAL IVPUSH SCH (09:17)
[2022-11-13] MEDS: methylPREDNISolone NA SUCC 40 MG/1 ML VIAL IVPUSH SCH (09:17)
[2022-11-13] MEDS: AMINO ACIDS/PROTEIN HYDROLYS 30 ML LIQUID.PKT PO SCH (09:17)
[2022-11-13] MEDS: ENOXAPARIN NA (PORCINE) 60 MG/0.6 ML DISP.SYRIN SQ SCH (09:18)
[2022-11-13] MEDS: ASCORBIC ACID 500 MG TABLET (FP) PO SCH (09:19)
[2022-11-13] MEDS: MULTIVITAMINS (DAILY MVI) TABLET (FP) PO SCH (09:20)
[2022-11-13] MEDS ORDERED: SERTRALINE HCL 50 MG TABLET (FP) PO SCH (10:00)
[2022-11-13] MEDS ORDERED: MAGNESIUM SULF 50% (8.12 MEQ/2 ML-1 GM VIAL) IVPB ONE (12:06)
[2022-11-13] MEDS ORDERED: ASCORBIC ACID 500 MG TABLET (FP) NGT SCH (12:15)
[2022-11-13] MEDS ORDERED: SERTRALINE HCL 50 MG TABLET (FP) NGT SCH (12:15)
[2022-11-13] MEDS ORDERED: SODIUM CHLORIDE 250 ML IV STA (16:38)
[2022-11-13] MEDS ORDERED: METOPROLOL TARTRATE 5 MG/5 ML VIAL IVPUSH SCH (16:42)
[2022-11-13] MEDS: AMINO ACIDS/PROTEIN HYDROLYS 30 ML LIQUID.PKT NGT SCH (18:50)
[2022-11-13] MEDS ORDERED: SODIUM CHLORIDE 0.9% 500 ML INFUS.BAG IV ONE ×2 (19:36→21:41)
[2022-11-13] MEDS: ACETAMINOPHEN 650 MG/20.3 ML ORAL SOLUTION (CUPS) NGT PRN (19:53)
[2022-11-13 20:11] LABS: HEMATOCRIT 24.4 % (35.4-49); HEMOGLOBIN 8.3 GM/dL (11.7-16.9); MCH 29.4 pg (25.7-33.7); MCHC 33.8 g/dl (32.0-35.9); MEAN CELL VOLUME 87.1 fl (80-96); MEAN PLT VOLUME 7.7 fl (7.5-11.1); PLATELET COUNT 290 10^3/uL (134-434); RDW 15.1 % (11.9-15.9); WHITE BLOOD COUNT 6.5 K/mm3 (4.0-10.0)
[2022-11-13 20:58] LABS: ANISOCYTOSIS 0; MACROCYTOSIS 0; OVALOCYTE 1+
[2022-11-13] MEDS: APIXABAN 5 MG TABLET NGT SCH (21:57)
[2022-11-13] MEDS: MELATONIN 1 MG TABLET GT SCH ×2 (21:57→23:45)
[2022-11-13] MEDS ORDERED: FINASTERIDE 5 MG TABLET (FP) PO SCH (22:00)
[2022-11-13] MEDS ORDERED: FINASTERIDE 5 MG TABLET (FP) GT SCH (22:00)
[2022-11-13] MEDS ORDERED: LACTATED RINGERS SOLUTION 1000 ML INFUS.BAG IV ONE (23:30)
[2022-11-13] MEDS ORDERED: LACTATED RINGERS SOLUTION 1,000 ML/1,000 ML INFUS.BAG IV SCH (23:45)
[2022-11-14] MEDS: ACETAMINOPHEN 650 MG/20.3 ML ORAL SOLUTION (CUPS) NGT PRN (04:00)
[2022-11-14] MEDS: ALBUTEROL SO4 2.5/IPRATROPIUM 0.5 INH SOL 3 ML VIAL.NEB. NEB SCH ×6 (04:25→23:59)
[2022-11-14 06:51] LABS: HEMATOCRIT 23.7 % (35.4-49); HEMOGLOBIN 8.1 GM/dL (11.7-16.9); MCH 29.9 pg (25.7-33.7); MCHC 34.2 g/dl (32.0-35.9); MEAN CELL VOLUME 87.6 fl (80-96); MEAN PLT VOLUME 7.8 fl (7.5-11.1); PLATELET COUNT 232 10^3/uL (134-434); RDW 15.2 % (11.9-15.9); WHITE BLOOD COUNT 12.1 K/mm3 (4.0-10.0)
[2022-11-14 07:13] LABS: CALCIUM 7.5 mg/dL (8.5-10.1)
[2022-11-14 07:14] LABS: ALBUMIN 1.9 g/dl (3.4-5.0)
[2022-11-14 07:17] LABS: CREATININE 0.7 mg/dL (0.55-1.3)
[2022-11-14 07:18] LABS: BILIRUBIN,TOTAL 0.3 mg/dL (0.2-1); TOT PROT 4.3 g/dl (6.4-8.2)
[2022-11-14 08:43] LABS: ANISOCYTOSIS 0; HELMET CELLS 0; HOWELL-JOLLY BODIES 0; MACROCYTOSIS 0; OVALOCYTE 0; ROULEAU 0; SICKELED CELLS 0; TARGET CELLS 0; TEAR DROP CELLS 0; TOXIC GRANULATION 0
[2022-11-14] MEDS: AMINO ACIDS/PROTEIN HYDROLYS 30 ML LIQUID.PKT NGT SCH (09:05)
[2022-11-14] MEDS: methylPREDNISolone NA SUCC 40 MG/1 ML VIAL IVPUSH SCH (09:06)
[2022-11-14] MEDS: APIXABAN 5 MG TABLET NGT SCH ×2 (09:06→21:03)
[2022-11-14] MEDS: PANTOPRAZOLE SODIUM 40 MG VIAL IVPUSH SCH (09:06)
[2022-11-14] MEDS: MULTIVITAMINS (DAILY MVI) TABLET (FP) PO SCH (09:08)
[2022-11-14 17:35] LABS: PH,URINE 5.5 (5.0-8.0); URINE APPEARANCE CLEAR; URINE BILIRUBIN NEGATIVE (NEGATIVE); URINE COLOR YELLOW; URINE GLUCOSE (UA) NEGATIVE (NEGATIVE); URINE KETONE NEGATIVE (NEGATIVE); URINE LEUK ESTERASE NEGATIVE (NEGATIVE); URINE NITRITE NEGATIVE (NEGATIVE); URINE PROTEIN TRACE (NEGATIVE); URINE UROBILINOGEN 0.2 mg/dL (0.2-1.0)
[2022-11-14] MEDS ORDERED: SENNOSIDES 8.6MG TABLET (FP) PO PRN (18:08)
[2022-11-14] MEDS: MELATONIN 5 MG TABLETS NR SCH (21:03)
[2022-11-14] MEDS: FINASTERIDE 5 MG TABLET (FP) GT SCH (21:03)
[2022-11-14] MEDS ORDERED: MELATONIN 1 MG TABLET GT SCH (22:00)
[2022-11-15] MEDS: ALBUTEROL SO4 2.5/IPRATROPIUM 0.5 INH SOL 3 ML VIAL.NEB. NEB SCH ×5 (04:05→20:50)
[2022-11-15 06:48] LABS: HEMATOCRIT 22.2 % (35.4-49); HEMOGLOBIN 7.6 GM/dL (11.7-16.9); MCH 30.2 pg (25.7-33.7); MCHC 34.4 g/dl (32.0-35.9); MEAN CELL VOLUME 87.7 fl (80-96); MEAN PLT VOLUME 7.7 fl (7.5-11.1); PLATELET COUNT 260 10^3/uL (134-434); RBC 2.53 M/mm3 (4.00-5.60); RDW 15.1 % (11.9-15.9); WHITE BLOOD COUNT 12.1 K/mm3 (4.0-10.0)
[2022-11-15 07:13] LABS: CALCIUM 8.2 mg/dL (8.5-10.1)
[2022-11-15 07:14] LABS: ALBUMIN 1.8 g/dl (3.4-5.0); BLOOD UREA NITROGEN 35.8 mg/dL (7-18); MAGNESIUM 2.1 mg/dL (1.8-2.4)
[2022-11-15 07:16] LABS: PHOSPHOROUS 2.6 mg/dL (2.5-4.9)
[2022-11-15 07:17] LABS: CREATININE 0.7 mg/dL (0.55-1.3)
[2022-11-15 07:18] LABS: BILIRUBIN,TOTAL 0.3 mg/dL (0.2-1); TOT PROT 4.4 g/dl (6.4-8.2)
[2022-11-15 09:11] LABS: ANISOCYTOSIS 0; HELMET CELLS 0; HOWELL-JOLLY BODIES 0; MACROCYTOSIS 0; OVALOCYTE 0; ROULEAU 0; SICKELED CELLS 0; TARGET CELLS 0; TEAR DROP CELLS 0; TOXIC GRANULATION 0
[2022-11-15] MEDS ORDERED: ACETAMINOPHEN 500 MG TABLET (FP) PO PRN (10:20)
[2022-11-15] MEDS: MULTIVITAMINS (DAILY MVI) TABLET (FP) PO SCH (11:09)
[2022-11-15] MEDS: SERTRALINE HCL 50 MG TABLET (FP) NGT SCH (11:09)
[2022-11-15] MEDS: ASCORBIC ACID 500 MG TABLET (FP) NGT SCH (11:09)
[2022-11-15] MEDS: FAMOTIDINE 40 MG/5 ML ORAL SUSPENSION PEG SCH (11:09)
[2022-11-15] MEDS: MIDODRINE HCL 2.5 MG TABLET PO SCH ×2 (11:09→18:06)
[2022-11-15] MEDS: APIXABAN 5 MG TABLET NGT SCH ×2 (11:09→21:46)
[2022-11-15] MEDS: AMINO ACIDS/PROTEIN HYDROLYS 30 ML LIQUID.PKT NGT SCH (11:10)
[2022-11-15 17:29] LABS: RETICULOCYTES 0.99 % (0.5-1.5)
[2022-11-15] MEDS: ACETAMINOPHEN 650 MG/20.3 ML ORAL SOLUTION (CUPS) NGT PRN (17:36)
[2022-11-15] MEDS: FINASTERIDE 5 MG TABLET (FP) GT SCH (21:46)
[2022-11-15] MEDS: MELATONIN 5 MG TABLETS NR SCH (21:46)
[2022-11-16] MEDS: ACETAMINOPHEN 650 MG/20.3 ML ORAL SOLUTION (CUPS) NGT PRN ×3 (02:10→21:51)
[2022-11-16] MEDS: ALBUTEROL SO4 2.5/IPRATROPIUM 0.5 INH SOL 3 ML VIAL.NEB. NEB SCH ×6 (04:00→20:31)
[2022-11-16] MEDS ORDERED: MIDODRINE HCL 2.5 MG TABLET PO ONE (04:26)
[2022-11-16 07:38] LABS: BASO % 0.3 % (0-2.0); EOS % 1.3 % (0-4.5); HEMATOCRIT 19.3 % (35.4-49); LYMPH % 4.9 % (8-40); MCH 29.8 pg (25.7-33.7); MCHC 33.9 g/dl (32.0-35.9); MEAN CELL VOLUME 87.9 fl (80-96); MEAN PLT VOLUME 7.5 fl (7.5-11.1); MONO % 7.9 % (3.8-10.2); NEUT % 85.6 % (42.8-82.8); PLATELET COUNT 255 10^3/uL (134-434); RDW 15.6 % (11.9-15.9)
[2022-11-16 07:43] LABS: HEMOGLOBIN 6.6 GM/dL (11.7-16.9)
[2022-11-16 08:20] LABS: ALBUMIN 1.7 g/dl (3.4-5.0); BLOOD UREA NITROGEN 32.7 mg/dL (7-18)
[2022-11-16 08:23] LABS: CREATININE 0.6 mg/dL (0.55-1.3); PHOSPHOROUS 2.8 mg/dL (2.5-4.9)
[2022-11-16 08:24] LABS: BILIRUBIN,TOTAL 0.3 mg/dL (0.2-1); TOT PROT 4.1 g/dl (6.4-8.2)
[2022-11-16] MEDS: AMINO ACIDS/PROTEIN HYDROLYS 30 ML LIQUID.PKT NGT SCH (08:30)
[2022-11-16] MEDS: MIDODRINE HCL 2.5 MG TABLET PO SCH ×2 (09:29→17:49)
[2022-11-16] MEDS: ASCORBIC ACID 500 MG TABLET (FP) NGT SCH (09:30)
[2022-11-16] MEDS: MULTIVITAMINS (DAILY MVI) TABLET (FP) PO SCH (09:30)
[2022-11-16] MEDS: SERTRALINE HCL 50 MG TABLET (FP) NGT SCH (09:30)
[2022-11-16] MEDS: PANTOPRAZOLE SODIUM 40 MG VIAL IVPUSH SCH ×2 (10:00→21:51)
[2022-11-16] MEDS: FAMOTIDINE 40 MG/5 ML ORAL SUSPENSION PEG SCH (12:23)
[2022-11-16] MEDS: FINASTERIDE 5 MG TABLET (FP) GT SCH (21:50)
[2022-11-16] MEDS: MELATONIN 5 MG TABLETS NR SCH (21:51)
[2022-11-16 22:00] LABS: BASO % 0.3 % (0-2.0); EOS % 0.6 % (0-4.5); HEMATOCRIT 24.7 % (35.4-49); HEMOGLOBIN 8.2 GM/dL (11.7-16.9); LYMPH % 4.3 % (8-40); MCH 29.2 pg (25.7-33.7); MCHC 33.4 g/dl (32.0-35.9); MEAN CELL VOLUME 87.5 fl (80-96); MEAN PLT VOLUME 7.4 fl (7.5-11.1); MONO % 6.7 % (3.8-10.2); NEUT % 88.1 % (42.8-82.8); PLATELET COUNT 300 10^3/uL (134-434); RBC 2.82 M/mm3 (4.00-5.60); RDW 15.7 % (11.9-15.9); WHITE BLOOD COUNT 8.9 K/mm3 (4.0-10.0)
[2022-11-17] MEDS: ALBUTEROL SO4 2.5/IPRATROPIUM 0.5 INH SOL 3 ML VIAL.NEB. NEB SCH ×7 (00:25→23:31)
[2022-11-17] MEDS: ACETAMINOPHEN 650 MG/20.3 ML ORAL SOLUTION (CUPS) NGT PRN ×2 (05:36→19:20)
[2022-11-17 07:19] LABS: BASO % 0.7 % (0-2.0); EOS % 0.8 % (0-4.5); HEMATOCRIT 21.9 % (35.4-49); HEMOGLOBIN 7.6 GM/dL (11.7-16.9); LYMPH % 4.9 % (8-40); MCH 29.9 pg (25.7-33.7); MCHC 34.5 g/dl (32.0-35.9); MEAN CELL VOLUME 86.8 fl (80-96); MEAN PLT VOLUME 7.4 fl (7.5-11.1); MONO % 8.1 % (3.8-10.2); NEUT % 85.5 % (42.8-82.8); PLATELET COUNT 254 10^3/uL (134-434); RBC 2.53 M/mm3 (4.00-5.60); RDW 15.6 % (11.9-15.9); WHITE BLOOD COUNT 6.1 K/mm3 (4.0-10.0)
[2022-11-17 07:33] LABS: CALCIUM 7.9 mg/dL (8.5-10.1)
[2022-11-17 07:34] LABS: ALBUMIN 1.7 g/dl (3.4-5.0); BLOOD UREA NITROGEN 34.8 mg/dL (7-18); MAGNESIUM 1.9 mg/dL (1.8-2.4)
[2022-11-17 07:37] LABS: CREATININE 0.7 mg/dL (0.55-1.3)
[2022-11-17 07:38] LABS: BILIRUBIN,TOTAL 0.9 mg/dL (0.2-1); TOT PROT 4.2 g/dl (6.4-8.2)
[2022-11-17] MEDS: AMINO ACIDS/PROTEIN HYDROLYS 30 ML LIQUID.PKT NGT SCH (08:58)
[2022-11-17] MEDS: MIDODRINE HCL 5 MG TABLET PO SCH ×2 (09:26→18:48)
[2022-11-17] MEDS: MULTIVITAMINS (DAILY MVI) TABLET (FP) PO SCH (09:26)
[2022-11-17] MEDS: ASCORBIC ACID 500 MG TABLET (FP) NGT SCH (09:26)
[2022-11-17] MEDS: SERTRALINE HCL 50 MG TABLET (FP) NGT SCH (09:26)
[2022-11-17] MEDS: PANTOPRAZOLE SODIUM 40 MG VIAL IVPUSH SCH ×2 (09:26→21:41)
[2022-11-17] MEDS ORDERED: DEXTROSE 5%-0.45% SALINE 1,000 ML IV SCH (13:15)
[2022-11-17] MEDS: DEXTROSE 5%-LACTATED RINGERS 1,000 ML IV SCH (13:30)
[2022-11-17] MEDS: FINASTERIDE 5 MG TABLET (FP) GT SCH (21:41)
[2022-11-17] MEDS: MELATONIN 5 MG TABLETS NR SCH (21:41)
[2022-11-18] MEDS: ALBUTEROL SO4 2.5/IPRATROPIUM 0.5 INH SOL 3 ML VIAL.NEB. NEB SCH ×5 (03:36→20:32)
[2022-11-18] MEDS: DEXTROSE 5%-LACTATED RINGERS 1,000 ML IV SCH ×2 (03:45→18:49)
[2022-11-18] MEDS: ACETAMINOPHEN 650 MG/20.3 ML ORAL SOLUTION (CUPS) NGT PRN ×2 (06:34→21:39)
[2022-11-18 07:10] LABS: HEMATOCRIT 22.3 % (35.4-49); HEMOGLOBIN 7.7 GM/dL (11.7-16.9); LYMPH % 8.8 % (8-40); MCHC 34.4 g/dl (32.0-35.9); MEAN PLT VOLUME 7.1 fl (7.5-11.1); MONO % 9.3 % (3.8-10.2); NEUT % 79.9 % (42.8-82.8); PLATELET COUNT 279 10^3/uL (134-434); RBC 2.57 M/mm3 (4.00-5.60); RDW 15.4 % (11.9-15.9); WHITE BLOOD COUNT 4.6 K/mm3 (4.0-10.0)
[2022-11-18] MEDS: AMINO ACIDS/PROTEIN HYDROLYS 30 ML LIQUID.PKT NGT SCH ×2 (08:22→08:51)
[2022-11-18 08:26] LABS: CALCIUM 8.2 mg/dL (8.5-10.1)
[2022-11-18 08:27] LABS: BLOOD UREA NITROGEN 27.8 mg/dL (7-18)
[2022-11-18 08:30] LABS: CREATININE 0.8 mg/dL (0.55-1.3)
[2022-11-18] MEDS: MULTIVITAMINS (DAILY MVI) TABLET (FP) PO SCH (10:23)
[2022-11-18] MEDS: ASCORBIC ACID 500 MG TABLET (FP) NGT SCH (10:23)
[2022-11-18] MEDS: MIDODRINE HCL 5 MG TABLET PO SCH ×2 (10:23→18:50)
[2022-11-18] MEDS: SERTRALINE HCL 50 MG TABLET (FP) NGT SCH (10:25)
[2022-11-18] MEDS: PANTOPRAZOLE SODIUM 40 MG VIAL IVPUSH SCH ×2 (10:25→21:15)
[2022-11-18] MEDS: FINASTERIDE 5 MG TABLET (FP) GT SCH (21:15)
[2022-11-18] MEDS: MELATONIN 5 MG TABLETS NR SCH (21:15)
[2022-11-19] MEDS: ALBUTEROL SO4 2.5/IPRATROPIUM 0.5 INH SOL 3 ML VIAL.NEB. NEB SCH ×6 (00:06→20:30)
[2022-11-19] MEDS: DEXTROSE 5%-LACTATED RINGERS 1,000 ML IV SCH ×2 (06:25→17:20)
[2022-11-19 07:04] LABS: BASO % 1.1 % (0-2.0); EOS % 1.4 % (0-4.5); HEMATOCRIT 26.2 % (35.4-49); HEMOGLOBIN 9.3 GM/dL (11.7-16.9); LYMPH % 7.7 % (8-40); MCHC 35.4 g/dl (32.0-35.9); MEAN CELL VOLUME 87.6 fl (80-96); MEAN PLT VOLUME 7.1 fl (7.5-11.1); NEUT % 81.8 % (42.8-82.8); PLATELET COUNT 353 10^3/uL (134-434); RDW 15.2 % (11.9-15.9); WHITE BLOOD COUNT 5.8 K/mm3 (4.0-10.0)
[2022-11-19 07:20] LABS: ALBUMIN 2.1 g/dl (3.4-5.0); BLOOD UREA NITROGEN 20.5 mg/dL (7-18); CALCIUM 8.7 mg/dL (8.5-10.1)
[2022-11-19 07:23] LABS: CREATININE 0.8 mg/dL (0.55-1.3); PHOSPHOROUS 3.2 mg/dL (2.5-4.9)
[2022-11-19 07:25] LABS: BILIRUBIN,TOTAL 0.4 mg/dL (0.2-1); TOT PROT 5.1 g/dl (6.4-8.2)
[2022-11-19] MEDS: AMINO ACIDS/PROTEIN HYDROLYS 30 ML LIQUID.PKT NGT SCH (08:17)
[2022-11-19] MEDS: ASCORBIC ACID 500 MG TABLET (FP) NGT SCH (09:55)
[2022-11-19] MEDS: SERTRALINE HCL 50 MG TABLET (FP) NGT SCH (09:55)
[2022-11-19] MEDS: PANTOPRAZOLE SODIUM 40 MG VIAL IVPUSH SCH ×2 (09:55→21:15)
[2022-11-19] MEDS: MIDODRINE HCL 5 MG TABLET PO SCH ×2 (09:55→17:18)
[2022-11-19] MEDS: MULTIVITAMINS (DAILY MVI) TABLET (FP) PO SCH (09:55)
[2022-11-19] MEDS: MELATONIN 5 MG TABLETS NR SCH (21:15)
[2022-11-19] MEDS: FINASTERIDE 5 MG TABLET (FP) GT SCH (21:15)
[2022-11-19] MEDS: ALPRAZolam 0.25 MG TABLET GT PRN (21:15)
[2022-11-19] MEDS: ACETAMINOPHEN 650 MG/20.3 ML ORAL SOLUTION (CUPS) NGT PRN (23:10)
[2022-11-20] MEDS: ALBUTEROL SO4 2.5/IPRATROPIUM 0.5 INH SOL 3 ML VIAL.NEB. NEB SCH ×6 (00:08→20:45)
[2022-11-20] MEDS: ACETAMINOPHEN 650 MG/20.3 ML ORAL SOLUTION (CUPS) NGT PRN ×2 (05:23→20:08)
[2022-11-20 06:46] LABS: BASO % 1.3 % (0-2.0); EOS % 1.4 % (0-4.5); HEMATOCRIT 27.2 % (35.4-49); HEMOGLOBIN 9.3 GM/dL (11.7-16.9); LYMPH % 6.1 % (8-40); MCH 30.1 pg (25.7-33.7); MCHC 34.3 g/dl (32.0-35.9); MEAN CELL VOLUME 87.8 fl (80-96); MEAN PLT VOLUME 6.9 fl (7.5-11.1); MONO % 7.4 % (3.8-10.2); NEUT % 83.8 % (42.8-82.8); PLATELET COUNT 303 10^3/uL (134-434); RDW 15.3 % (11.9-15.9); WHITE BLOOD COUNT 5.6 K/mm3 (4.0-10.0)
[2022-11-20 07:18] LABS: CALCIUM 8.3 mg/dL (8.5-10.1)
[2022-11-20 07:19] LABS: ALBUMIN 1.9 g/dl (3.4-5.0); BLOOD UREA NITROGEN 19.3 mg/dL (7-18); MAGNESIUM 1.8 mg/dL (1.8-2.4)
[2022-11-20 07:22] LABS: CREATININE 0.8 mg/dL (0.55-1.3)
[2022-11-20 07:23] LABS: BILIRUBIN,TOTAL 0.3 mg/dL (0.2-1); TOT PROT 4.6 g/dl (6.4-8.2)
[2022-11-20] MEDS: PANTOPRAZOLE SODIUM 40 MG VIAL IVPUSH SCH ×2 (09:48→21:28)
[2022-11-20] MEDS: MULTIVITAMINS (DAILY MVI) TABLET (FP) PO SCH (09:48)
[2022-11-20] MEDS: AMINO ACIDS/PROTEIN HYDROLYS 30 ML LIQUID.PKT NGT SCH (09:48)
[2022-11-20] MEDS: MIDODRINE HCL 5 MG TABLET PO SCH ×2 (09:48→17:15)
[2022-11-20] MEDS: SERTRALINE HCL 50 MG TABLET (FP) NGT SCH (09:48)
[2022-11-20] MEDS: ASCORBIC ACID 500 MG TABLET (FP) NGT SCH (09:49)
[2022-11-20] MEDS: DEXTROSE 5%-LACTATED RINGERS 1,000 ML IV SCH (14:00)
[2022-11-20] MEDS: FINASTERIDE 5 MG TABLET (FP) GT SCH (21:28)
[2022-11-20] MEDS: MELATONIN 5 MG TABLETS NR SCH (21:28)
[2022-11-20] MEDS: ALPRAZolam 0.25 MG TABLET GT PRN (21:28)
[2022-11-21] MEDS: ALBUTEROL SO4 2.5/IPRATROPIUM 0.5 INH SOL 3 ML VIAL.NEB. NEB SCH ×6 (00:05→20:10)
[2022-11-21] MEDS: DEXTROSE 5%-LACTATED RINGERS 1,000 ML IV SCH (06:04)
[2022-11-21] MEDS: ACETAMINOPHEN 650 MG/20.3 ML ORAL SOLUTION (CUPS) NGT PRN (06:04)
[2022-11-21 07:19] LABS: BASO % 1.9 % (0-2.0); EOS % 2.6 % (0-4.5); HEMATOCRIT 24.7 % (35.4-49); HEMOGLOBIN 8.5 GM/dL (11.7-16.9); LYMPH % 10.7 % (8-40); MCH 30.6 pg (25.7-33.7); MCHC 34.5 g/dl (32.0-35.9); MEAN CELL VOLUME 88.6 fl (80-96); MEAN PLT VOLUME 6.9 fl (7.5-11.1); MONO % 10.3 % (3.8-10.2); NEUT % 74.5 % (42.8-82.8); PLATELET COUNT 266 10^3/uL (134-434); RBC 2.79 M/mm3 (4.00-5.60); WHITE BLOOD COUNT 3.9 K/mm3 (4.0-10.0)
[2022-11-21 07:25] LABS: INR 1.1 (0.83-1.09); PROTHROMBIN TIME (PATIENT) 12.8 SEC (9.7-13.0)
[2022-11-21 07:58] LABS: ALBUMIN 1.8 g/dl (3.4-5.0); BLOOD UREA NITROGEN 18.7 mg/dL (7-18); CALCIUM 8.6 mg/dL (8.5-10.1); MAGNESIUM 1.8 mg/dL (1.8-2.4)
[2022-11-21 08:01] LABS: CREATININE 0.7 mg/dL (0.55-1.3); PHOSPHOROUS 2.9 mg/dL (2.5-4.9)
[2022-11-21 08:02] LABS: BILIRUBIN,TOTAL 0.4 mg/dL (0.2-1)
[2022-11-21 08:04] LABS: TOT PROT 4.3 g/dl (6.4-8.2)
[2022-11-21] MEDS: AMINO ACIDS/PROTEIN HYDROLYS 30 ML LIQUID.PKT NGT SCH (09:42)
[2022-11-21] MEDS: PANTOPRAZOLE SODIUM 40 MG VIAL IVPUSH SCH ×2 (09:43→21:23)
[2022-11-21] MEDS: MIDODRINE HCL 5 MG TABLET PO SCH ×2 (09:43→17:10)
[2022-11-21] MEDS: SERTRALINE HCL 50 MG TABLET (FP) NGT SCH (09:43)
[2022-11-21] MEDS: MULTIVITAMINS (DAILY MVI) TABLET (FP) PO SCH (09:43)
[2022-11-21] MEDS: ASCORBIC ACID 500 MG TABLET (FP) NGT SCH (09:43)
[2022-11-21 13:11] LABS: VENOUS BASE EXCESS 5.2 mmol/L (-2-2); VENOUS O2 SATURATION 33.3 % (70-80); VENOUS PH 7.341 (7.310-7.410)
[2022-11-21] MEDS ORDERED: BISACODYL 10 MG SUPP.RECT PR ONE (16:00)
[2022-11-21] MEDS ORDERED: PEG 3350/NA SULF BICARB CL/KCL 4000 ML SOLN.RECON GT ONE (17:00)
[2022-11-21] MEDS: ALPRAZolam 0.25 MG TABLET GT PRN (21:22)
[2022-11-21] MEDS: MELATONIN 5 MG TABLETS NR SCH (21:23)
[2022-11-21] MEDS: FINASTERIDE 5 MG TABLET (FP) GT SCH (21:23)
[2022-11-22] MEDS: ALBUTEROL SO4 2.5/IPRATROPIUM 0.5 INH SOL 3 ML VIAL.NEB. NEB SCH ×6 (00:22→20:24)
[2022-11-22] MEDS ORDERED: ACETAMINOPHEN 1000 MG/100 ML BAG IVPB ONE (01:12)
[2022-11-22 07:46] LABS: BASO % 1.9 % (0-2.0); EOS % 3.5 % (0-4.5); HEMATOCRIT 26.5 % (35.4-49); MCH 29.9 pg (25.7-33.7); MEAN CELL VOLUME 88.1 fl (80-96); MEAN PLT VOLUME 6.4 fl (7.5-11.1); MONO % 9.6 % (3.8-10.2); PLATELET COUNT 275 10^3/uL (134-434); RBC 3.01 M/mm3 (4.00-5.60); WHITE BLOOD COUNT 3.4 K/mm3 (4.0-10.0)
[2022-11-22 07:53] LABS: INR 1.09 (0.83-1.09); PROTHROMBIN TIME (PATIENT) 12.6 SEC (9.7-13.0)
[2022-11-22 08:12] LABS: BLOOD UREA NITROGEN 16.9 mg/dL (7-18); CALCIUM 8.5 mg/dL (8.5-10.1); MAGNESIUM 2.1 mg/dL (1.8-2.4)
[2022-11-22 08:15] LABS: CREATININE 0.7 mg/dL (0.55-1.3); PHOSPHOROUS 2.7 mg/dL (2.5-4.9)
[2022-11-22 08:17] LABS: BILIRUBIN,TOTAL 0.5 mg/dL (0.2-1); TOT PROT 4.7 g/dl (6.4-8.2)
[2022-11-22] MEDS ORDERED: PEG 3350/NA SULF BICARB CL/KCL 4000 ML SOLN.RECON PO ONE (09:15)
[2022-11-22] MEDS: AMINO ACIDS/PROTEIN HYDROLYS 30 ML LIQUID.PKT NGT SCH (09:41)
[2022-11-22] MEDS: PANTOPRAZOLE SODIUM 40 MG VIAL IVPUSH SCH (10:27)
[2022-11-22] MEDS: MULTIVITAMINS (DAILY MVI) TABLET (FP) PO SCH (10:27)
[2022-11-22] MEDS: SERTRALINE HCL 50 MG TABLET (FP) NGT SCH (10:27)
[2022-11-22] MEDS: MIDODRINE HCL 5 MG TABLET PO SCH ×2 (10:27→17:08)
[2022-11-22] MEDS: ALPRAZolam 0.25 MG TABLET GT PRN (10:27)
[2022-11-22] MEDS: ASCORBIC ACID 500 MG TABLET (FP) NGT SCH (10:27)
[2022-11-22] MEDS ORDERED: SENNOSIDES 8.6MG TABLET (FP) PO PRN (18:36)
[2022-11-22] MEDS: FINASTERIDE 5 MG TABLET (FP) GT SCH (23:00)
[2022-11-22] MEDS: MELATONIN 5 MG TABLETS NR SCH (23:00)
[2022-11-23] MEDS: ALBUTEROL SO4 2.5/IPRATROPIUM 0.5 INH SOL 3 ML VIAL.NEB. NEB SCH ×7 (01:56→23:55)
[2022-11-23 09:12] LABS: BASO % 1.3 % (0-2.0); HEMATOCRIT 26.2 % (35.4-49); HEMOGLOBIN 8.8 GM/dL (11.7-16.9); LYMPH % 12.6 % (8-40); MCH 29.4 pg (25.7-33.7); MCHC 33.7 g/dl (32.0-35.9); MEAN CELL VOLUME 87.1 fl (80-96); MEAN PLT VOLUME 6.6 fl (7.5-11.1); MONO % 8.8 % (3.8-10.2); NEUT % 75.3 % (42.8-82.8); PLATELET COUNT 283 10^3/uL (134-434); RDW 14.7 % (11.9-15.9); WHITE BLOOD COUNT 4.5 K/mm3 (4.0-10.0)
[2022-11-23 09:30] LABS: CALCIUM 8.5 mg/dL (8.5-10.1)
[2022-11-23 09:31] LABS: BLOOD UREA NITROGEN 19.2 mg/dL (7-18); MAGNESIUM 1.9 mg/dL (1.8-2.4)
[2022-11-23 09:34] LABS: CREATININE 0.7 mg/dL (0.55-1.3)
[2022-11-23 09:36] LABS: BILIRUBIN,TOTAL 0.2 mg/dL (0.2-1); TOT PROT 4.8 g/dl (6.4-8.2)
[2022-11-23] MEDS ORDERED: APIXABAN 5 MG TABLET PO SCH (10:00)
[2022-11-23] MEDS: MIDODRINE HCL 5 MG TABLET PO SCH ×2 (10:08→17:49)
[2022-11-23] MEDS: ASCORBIC ACID 500 MG TABLET (FP) NGT SCH (10:09)
[2022-11-23] MEDS: PANTOPRAZOLE SODIUM 40 MG VIAL IVPUSH SCH (10:09)
[2022-11-23] MEDS: SERTRALINE HCL 50 MG TABLET (FP) NGT SCH (10:09)
[2022-11-23] MEDS: AMINO ACIDS/PROTEIN HYDROLYS 30 ML LIQUID.PKT NGT SCH (10:10)
[2022-11-23] MEDS: MULTIVIT-MINERALS ORAL LIQUID GT SCH (10:10)
[2022-11-23] MEDS ORDERED: INSULIN (NOVOLOG) ASPART 100 UNITS/ML 10ML VIAL ONE (18:02)
[2022-11-23] MEDS ORDERED: SENNOSIDES 8.8 MG/5 ML SYRUP PO PRN (19:27)
[2022-11-23] MEDS ORDERED: MIDODRINE HCL 5 MG TABLET GT SCH (19:27)
[2022-11-23] MEDS ORDERED: SENNOSIDES 8.8 MG/5 ML SYRUP GT PRN (19:28)
[2022-11-23] MEDS: APIXABAN 5 MG TABLET GT SCH (22:36)
[2022-11-23] MEDS: MELATONIN 5 MG TABLETS NR SCH (22:36)
[2022-11-23] MEDS: FINASTERIDE 5 MG TABLET (FP) GT SCH (22:36)
[2022-11-24] MEDS: ALBUTEROL SO4 2.5/IPRATROPIUM 0.5 INH SOL 3 ML VIAL.NEB. NEB SCH ×6 (04:26→23:29)
[2022-11-24 07:31] LABS: BASO % 0.9 % (0-2.0); EOS % 1.6 % (0-4.5); HEMATOCRIT 24.1 % (35.4-49); HEMOGLOBIN 8.3 GM/dL (11.7-16.9); LYMPH % 8.8 % (8-40); MCH 29.9 pg (25.7-33.7); MCHC 34.2 g/dl (32.0-35.9); MEAN CELL VOLUME 87.4 fl (80-96); MEAN PLT VOLUME 6.3 fl (7.5-11.1); MONO % 9.8 % (3.8-10.2); NEUT % 78.9 % (42.8-82.8); PLATELET COUNT 245 10^3/uL (134-434); RBC 2.76 M/mm3 (4.00-5.60); RDW 14.8 % (11.9-15.9); WHITE BLOOD COUNT 4.9 K/mm3 (4.0-10.0)
[2022-11-24 07:46] LABS: CALCIUM 8.6 mg/dL (8.5-10.1)
[2022-11-24 07:47] LABS: BLOOD UREA NITROGEN 16.8 mg/dL (7-18); MAGNESIUM 2.1 mg/dL (1.8-2.4)
[2022-11-24 07:50] LABS: CREATININE 0.7 mg/dL (0.55-1.3); PHOSPHOROUS 2.9 mg/dL (2.5-4.9)
[2022-11-24 07:51] LABS: BILIRUBIN,TOTAL 0.4 mg/dL (0.2-1); TOT PROT 4.6 g/dl (6.4-8.2)
[2022-11-24] MEDS: MULTIVIT-MINERALS ORAL LIQUID GT SCH (10:19)
[2022-11-24] MEDS: PANTOPRAZOLE SODIUM 40 MG VIAL IVPUSH SCH (10:19)
[2022-11-24] MEDS: AMINO ACIDS/PROTEIN HYDROLYS 30 ML LIQUID.PKT NGT SCH (10:19)
[2022-11-24] MEDS: MIDODRINE HCL 5 MG TABLET GT SCH (10:20)
[2022-11-24] MEDS: ASCORBIC ACID 500 MG TABLET (FP) NGT SCH (10:20)
[2022-11-24] MEDS: APIXABAN 5 MG TABLET GT SCH ×2 (10:20→21:25)
[2022-11-24] MEDS: METOPROLOL TARTRATE 25 MG TABLET (FP) PO SCH ×2 (10:20→21:25)
[2022-11-24] MEDS: SERTRALINE HCL 50 MG TABLET (FP) NGT SCH (10:20)
[2022-11-24] MEDS: ALPRAZolam 0.25 MG TABLET GT PRN (10:20)
[2022-11-24] MEDS: FINASTERIDE 5 MG TABLET (FP) GT SCH (21:24)
[2022-11-24] MEDS: MELATONIN 5 MG TABLETS NR SCH (21:24)
[2022-11-25] MEDS: ALBUTEROL SO4 2.5/IPRATROPIUM 0.5 INH SOL 3 ML VIAL.NEB. NEB SCH ×6 (04:07→23:17)
[2022-11-25] MEDS: AMINO ACIDS/PROTEIN HYDROLYS 30 ML LIQUID.PKT NGT SCH (09:37)
[2022-11-25 10:13] LABS: BASO % 0.8 % (0-2.0); HEMATOCRIT 25.6 % (35.4-49); HEMOGLOBIN 8.9 GM/dL (11.7-16.9); MCH 30.6 pg (25.7-33.7); MCHC 34.7 g/dl (32.0-35.9); MEAN PLT VOLUME 6.9 fl (7.5-11.1); MONO % 10.4 % (3.8-10.2); NEUT % 75.8 % (42.8-82.8); PLATELET COUNT 228 10^3/uL (134-434); RBC 2.91 M/mm3 (4.00-5.60); RDW 14.5 % (11.9-15.9); WHITE BLOOD COUNT 4.8 K/mm3 (4.0-10.0)
[2022-11-25 10:22] LABS: CALCIUM 8.7 mg/dL (8.5-10.1)
[2022-11-25 10:23] LABS: ALBUMIN 2.2 g/dl (3.4-5.0); BLOOD UREA NITROGEN 18.6 mg/dL (7-18)
[2022-11-25 10:26] LABS: CREATININE 0.7 mg/dL (0.55-1.3); PHOSPHOROUS 3.4 mg/dL (2.5-4.9)
[2022-11-25 10:27] LABS: BILIRUBIN,TOTAL 0.3 mg/dL (0.2-1)
[2022-11-25] MEDS: ASCORBIC ACID 500 MG TABLET (FP) NGT SCH (11:16)
[2022-11-25] MEDS: SERTRALINE HCL 50 MG TABLET (FP) NGT SCH (11:16)
[2022-11-25] MEDS: PANTOPRAZOLE SODIUM 40 MG VIAL IVPUSH SCH (11:16)
[2022-11-25] MEDS: METOPROLOL TARTRATE 25 MG TABLET (FP) PO SCH ×2 (11:17→22:53)
[2022-11-25] MEDS: MULTIVIT-MINERALS ORAL LIQUID GT SCH (11:21)
[2022-11-25] MEDS: APIXABAN 5 MG TABLET GT SCH ×2 (11:22→22:55)
[2022-11-25] MEDS: MIDODRINE HCL 5 MG TABLET GT SCH (11:36)
[2022-11-25] MEDS: FINASTERIDE 5 MG TABLET (FP) GT SCH (22:55)
[2022-11-25] MEDS: MELATONIN 5 MG TABLETS NR SCH (22:55)
[2022-11-26] MEDS: ACETAMINOPHEN 650 MG/20.3 ML ORAL SOLUTION (CUPS) NGT PRN (01:12)
[2022-11-26] MEDS: ALBUTEROL SO4 2.5/IPRATROPIUM 0.5 INH SOL 3 ML VIAL.NEB. NEB SCH ×5 (05:00→19:31)
[2022-11-26] MEDS: PANTOPRAZOLE SODIUM 40 MG VIAL IVPUSH SCH (10:11)
[2022-11-26] MEDS: AMINO ACIDS/PROTEIN HYDROLYS 30 ML LIQUID.PKT NGT SCH (10:11)
[2022-11-26] MEDS: ASCORBIC ACID 500 MG TABLET (FP) NGT SCH (10:12)
[2022-11-26] MEDS: METOPROLOL TARTRATE 25 MG TABLET (FP) PO SCH ×2 (10:12→21:51)
[2022-11-26] MEDS: MIDODRINE HCL 5 MG TABLET GT SCH (10:12)
[2022-11-26] MEDS: APIXABAN 5 MG TABLET GT SCH ×2 (10:12→21:52)
[2022-11-26] MEDS: SERTRALINE HCL 50 MG TABLET (FP) NGT SCH (10:12)
[2022-11-26] MEDS: MULTIVIT-MINERALS ORAL LIQUID GT SCH (10:13)
[2022-11-26] MEDS: FINASTERIDE 5 MG TABLET (FP) GT SCH (21:51)
[2022-11-26] MEDS: MELATONIN 5 MG TABLETS NR SCH (21:52)
[2022-11-27] MEDS: ALBUTEROL SO4 2.5/IPRATROPIUM 0.5 INH SOL 3 ML VIAL.NEB. NEB SCH ×7 (00:07→23:19)
[2022-11-27] MEDS: AMINO ACIDS/PROTEIN HYDROLYS 30 ML LIQUID.PKT NGT SCH (08:10)
[2022-11-27] MEDS: APIXABAN 5 MG TABLET GT SCH ×2 (10:09→21:39)
[2022-11-27] MEDS: MIDODRINE HCL 5 MG TABLET GT SCH (10:09)
[2022-11-27] MEDS: ASCORBIC ACID 500 MG TABLET (FP) NGT SCH (10:10)
[2022-11-27] MEDS: METOPROLOL TARTRATE 25 MG TABLET (FP) PO SCH ×2 (10:10→21:39)
[2022-11-27] MEDS: SERTRALINE HCL 50 MG TABLET (FP) NGT SCH (10:10)
[2022-11-27] MEDS: MULTIVIT-MINERALS ORAL LIQUID GT SCH (10:10)
[2022-11-27] MEDS: PANTOPRAZOLE SODIUM 40 MG VIAL IVPUSH SCH (10:10)
[2022-11-27] MEDS: FINASTERIDE 5 MG TABLET (FP) GT SCH (21:39)
[2022-11-27] MEDS: MELATONIN 5 MG TABLETS NR SCH (21:39)
[2022-11-28] MEDS: ACETAMINOPHEN 650 MG/20.3 ML ORAL SOLUTION (CUPS) NGT PRN ×2 (03:21→18:00)
[2022-11-28] MEDS: ALBUTEROL SO4 2.5/IPRATROPIUM 0.5 INH SOL 3 ML VIAL.NEB. NEB SCH ×6 (03:43→23:45)
[2022-11-28 08:15] LABS: BASO % 0.6 % (0-2.0); EOS % 4.5 % (0-4.5); HEMATOCRIT 25.5 % (35.4-49); HEMOGLOBIN 8.8 GM/dL (11.7-16.9); LYMPH % 11.2 % (8-40); MCH 29.8 pg (25.7-33.7); MCHC 34.3 g/dl (32.0-35.9); MEAN PLT VOLUME 7.1 fl (7.5-11.1); MONO % 10.1 % (3.8-10.2); NEUT % 73.6 % (42.8-82.8); PLATELET COUNT 215 10^3/uL (134-434); RBC 2.94 M/mm3 (4.00-5.60); RDW 14.4 % (11.9-15.9); WHITE BLOOD COUNT 5.3 K/mm3 (4.0-10.0)
[2022-11-28 08:36] LABS: ALBUMIN 2.3 g/dl (3.4-5.0); BLOOD UREA NITROGEN 29.5 mg/dL (7-18); CALCIUM 8.7 mg/dL (8.5-10.1); MAGNESIUM 2.2 mg/dL (1.8-2.4)
[2022-11-28 08:38] LABS: PHOSPHOROUS 3.7 mg/dL (2.5-4.9)
[2022-11-28 08:39] LABS: CREATININE 0.8 mg/dL (0.55-1.3)
[2022-11-28 08:40] LABS: BILIRUBIN,TOTAL 0.2 mg/dL (0.2-1); TOT PROT 5.2 g/dl (6.4-8.2)
[2022-11-28] MEDS: APIXABAN 5 MG TABLET GT SCH ×2 (09:16→21:22)
[2022-11-28] MEDS: AMINO ACIDS/PROTEIN HYDROLYS 30 ML LIQUID.PKT NGT SCH (09:16)
[2022-11-28] MEDS: METOPROLOL TARTRATE 25 MG TABLET (FP) PO SCH ×2 (09:17→21:22)
[2022-11-28] MEDS: MIDODRINE HCL 5 MG TABLET GT SCH (09:18)
[2022-11-28] MEDS: ASCORBIC ACID 500 MG TABLET (FP) NGT SCH (09:19)
[2022-11-28] MEDS: PANTOPRAZOLE SODIUM 40 MG VIAL IVPUSH SCH (09:19)
[2022-11-28] MEDS: SERTRALINE HCL 50 MG TABLET (FP) NGT SCH (09:19)
[2022-11-28] MEDS: MULTIVIT-MINERALS ORAL LIQUID GT SCH (10:09)
[2022-11-28] MEDS: FINASTERIDE 5 MG TABLET (FP) GT SCH (21:22)
[2022-11-28] MEDS: MELATONIN 5 MG TABLETS NR SCH (21:22)
[2022-11-29] MEDS: ALBUTEROL SO4 2.5/IPRATROPIUM 0.5 INH SOL 3 ML VIAL.NEB. NEB SCH (08:10)
[2022-11-29] MEDS: AMINO ACIDS/PROTEIN HYDROLYS 30 ML LIQUID.PKT NGT SCH (08:29)
[2022-11-29] MEDS: ASCORBIC ACID 500 MG TABLET (FP) NGT SCH (09:09)
[2022-11-29] MEDS: APIXABAN 5 MG TABLET GT SCH (09:09)
[2022-11-29] MEDS: MIDODRINE HCL 5 MG TABLET GT SCH (09:09)
[2022-11-29] MEDS: SERTRALINE HCL 50 MG TABLET (FP) NGT SCH (09:10)
[2022-11-29] MEDS: MULTIVIT-MINERALS ORAL LIQUID GT SCH (09:10)
[2022-11-29] MEDS: METOPROLOL TARTRATE 25 MG TABLET (FP) PO SCH (09:10)
[2022-11-29] MEDS ORDERED: PANTOPRAZOLE 40 MG TABLET PO SCH (10:00)
[2022-11-29] MEDS ORDERED: FAMOTIDINE 40 MG/5 ML ORAL SUSPENSION PO SCH (10:00)
[2022-11-29 11:07] VITALS: BP 135/69; PULSE 62; RESP 20; TEMP 97.8
== END 2022-11-29 11:41 | DRG 870 ==
LOC: JER 20:36 → JERBED 22:22 → JICU 11-02 02:03 → J2W 11-05 13:31 → J8W 11-22 18:15
PROVIDERS: ADMIT Internal Medicine Pulmonary Disease; ATTEND Internal Medicine
PROC: 02HV33Z Insertion of Infusion Device into Superior Vena Cava, Percutaneous Approach (ICD-10-PCS; 2022-11-02)
PROC: B548ZZA Ultrasonography of Superior Vena Cava, Guidance (ICD-10-PCS; 2022-11-02)
PROC: 5A1955Z Respiratory Ventilation, Greater than 96 Consecutive Hours (ICD-10-PCS; principal; 2022-11-05)
PROC: 0CJS8ZZ Inspection of Larynx, Via Natural or Artificial Opening Endoscopic (ICD-10-PCS; 2022-11-08)
PROC: 0DH63UZ Insertion of Feeding Device into Stomach, Percutaneous Approach (ICD-10-PCS; 2022-11-11)
PROC: 3E0G76Z Introduction of Nutritional Substance into Upper GI, Via Natural or Artificial Opening (ICD-10-PCS; 2022-11-11)
PROC: 30233N1 Transfusion of Nonautologous Red Blood Cells into Peripheral Vein, Percutaneous Approach (ICD-10-PCS; 2022-11-16)
PROC: 0DB98ZX Excision of Duodenum, Via Natural or Artificial Opening Endoscopic, Diagnostic (ICD-10-PCS; 2022-11-22)
PROC: 0DB68ZX Excision of Stomach, Via Natural or Artificial Opening Endoscopic, Diagnostic (ICD-10-PCS; 2022-11-22)
PROC: 0DB78ZX Excision of Stomach, Pylorus, Via Natural or Artificial Opening Endoscopic, Diagnostic (ICD-10-PCS; 2022-11-22)
PROC: 0DJD8ZZ Inspection of Lower Intestinal Tract, Via Natural or Artificial Opening Endoscopic (ICD-10-PCS; 2022-11-22)
DX: A41.50 Gram-negative sepsis, unspecified (principal); E43 Unspecified severe protein-calorie malnutrition; J18.9 Pneumonia, unspecified organism; R65.21 Severe sepsis with septic shock; J96.21 Acute and chronic respiratory failure with hypoxia; J96.22 Acute and chronic respiratory failure with hypercapnia; G72.81 Critical illness myopathy; N17.9 Acute kidney failure, unspecified; D68.9 Coagulation defect, unspecified; E87.20 Acidosis, unspecified; N39.0 Urinary tract infection, site not specified; J44.1 Chronic obstructive pulmonary disease with (acute) exacerbation; R64 Cachexia; Z68.1 Body mass index [BMI] 19.9 or less, adult; I48.20 Chronic atrial fibrillation, unspecified; K92.2 Gastrointestinal hemorrhage, unspecified; Z79.01 Long term (current) use of anticoagulants; J44.9 Chronic obstructive pulmonary disease, unspecified; F20.9 Schizophrenia, unspecified; K21.9 Gastro-esophageal reflux disease without esophagitis; D63.1 Anemia in chronic kidney disease; N40.0 Benign prostatic hyperplasia without lower urinary tract symptoms; E78.5 Hyperlipidemia, unspecified; Z99.81 Dependence on supplemental oxygen; R33.8 Other retention of urine; N18.9 Chronic kidney disease, unspecified; R31.9 Hematuria, unspecified; R13.14 Dysphagia, pharyngoesophageal phase; R49.0 Dysphonia; Z93.0 Tracheostomy status; E86.0 Dehydration; E83.39 Other disorders of phosphorus metabolism; K29.70 Gastritis, unspecified, without bleeding; K29.80 Duodenitis without bleeding; K31.7 Polyp of stomach and duodenum; K57.30 Diverticulosis of large intestine without perforation or abscess without bleeding
CPT/HCPCS: 0241U-QW; 36415; 36430; 49440; 71045-TC-FY; 74018-TC-FY; 74176-TC; 76775-TC; 80048; 80053; 80076; 81003; 82272; 82550; 82553; 82607; 82728; 82746; 82803; 82962; 83540; 83550; 83605; 83735; 84100; 84484; 85025; 85027; 85045; 85610; 85730; 86140; 86850; 86900; 86901; 86922; 87040; 87086; 87186; 87324; 87449; 88305-TC; 93005; 93010; 94002; 94640; 97161-GP; 99285-25; C9803-CS; G0480; J0282; J1644; J3490; P9058; U0003; U0005

== ENCOUNTER 2023-01-28 01:34 | Inpatient (IN) | payer OTHER ==
[2023-01-28 03:43] LABS: BASO % 0.1 % (0-2.0); HEMATOCRIT 31.3 % (35.4-49); HEMOGLOBIN 10.4 GM/dL (11.7-16.9); LYMPH % 4.6 % (8-40); MCHC 33.4 g/dl (32.0-35.9); MEAN PLT VOLUME 6.6 fl (7.5-11.1); MONO % 7.6 % (3.8-10.2); NEUT % 86.7 % (42.8-82.8); PLATELET COUNT 312 10^3/uL (134-434); RDW 14.5 % (11.9-15.9); WHITE BLOOD COUNT 14.9 K/mm3 (4.0-10.0)
[2023-01-28 03:44] LABS: EPI CELLS 7 /uL (0-25.1); HYALINE CASTS 0 /uL (0-3.1); PH,URINE >= 9.0 (5.0-8.0); URINE APPEARANCE CLOUDY; URINE BACTERIA 1242 /uL (0-1359); URINE BILIRUBIN NEGATIVE (NEGATIVE); URINE COLOR YELLOW; URINE GLUCOSE (UA) NEGATIVE (NEGATIVE); URINE KETONE NEGATIVE (NEGATIVE); URINE LEUK ESTERASE 3+ (NEGATIVE); URINE NITRITE NEGATIVE (NEGATIVE); URINE PROTEIN 1+ (NEGATIVE); URINE RBC 69 /uL (0-23.9); URINE UROBILINOGEN 0.2 mg/dL (0.2-1.0); URINE WBC 218 /uL (0-25.8)
[2023-01-28 03:59] LABS: POTASSIUM 4.8 mmol/L (3.5-5.1)
[2023-01-28 04:01] LABS: CALCIUM 9.2 mg/dL (8.5-10.1)
[2023-01-28 04:02] LABS: ALBUMIN 2.9 g/dl (3.4-5.0)
[2023-01-28 04:05] LABS: CREATININE 1.1 mg/dL (0.55-1.3)
[2023-01-28 04:07] LABS: BILIRUBIN,TOTAL 0.2 mg/dL (0.2-1); TOT PROT 5.9 g/dl (6.4-8.2)
[2023-01-28] MEDS ORDERED: MEROPENEM 1 GM in DEXTROSE 5%-WATER 100 ML IVPB ONE (05:12)
[2023-01-28] MEDS ORDERED: MEROPENEM 1 GM VIAL (RESTRICTED TO ID) IVPB ONE (05:38)
[2023-01-28] MEDS ORDERED: ALBUTEROL SO4 2.5/IPRATROPIUM 0.5 INH SOL 3 ML VIAL.NEB. NEB PRN (07:25)
[2023-01-28] MEDS ORDERED: SENNOSIDES 8.8 MG/5 ML SYRUP GT PRN (07:25)
[2023-01-28] MEDS ORDERED: ALPRAZolam 0.25 MG TABLET GT PRN (07:25)
[2023-01-28] MEDS ORDERED: PATIENT'S OWN MEDICATION (NON-FORMULARY) (Fluticasone/Salmeterol [Advair Hfa 45-21 Mcg Inh PO SCH (10:00)
[2023-01-28] MEDS: SERTRALINE HCL 50 MG TABLET (FP) GT SCH (10:52)
[2023-01-28] MEDS: METOPROLOL TARTRATE 25 MG TABLET (FP) GT SCH ×2 (10:52→23:40)
[2023-01-28] MEDS: CALCIUM 500MG/VIT-D 200 UNITS COMBO TABLET (FP) GT SCH (10:52)
[2023-01-28] MEDS: PANTOPRAZOLE SODIUM 40 MG VIAL IVPUSH SCH (10:52)
[2023-01-28] MEDS: ASCORBIC ACID 500 MG/5 ML UNIT DOSE CUP GT SCH ×2 (10:53→23:39)
[2023-01-28] MEDS ORDERED: BUDESONIDE/FORMETEROL FUMARATE 160/4.5 mcg INHALER IH SCH (11:30)
[2023-01-28] MEDS: MULTIVIT-MINERALS ORAL LIQUID GT SCH (12:11)
[2023-01-28] MEDS: BUDESONIDE/FORMETEROL FUMARATE 80/4.5 mcg INHALER IH SCH ×2 (14:04→23:40)
[2023-01-28] MEDS: MEROPENEM 1 GM in DEXTROSE 5%-WATER 100 ML IVPB SCH (17:45)
[2023-01-28] MEDS ORDERED: MEROPENEM 1 GM in DEXTROSE 5%-WATER 100 ML IVPB SCH (18:00)
[2023-01-28] MEDS: ATORVASTATIN CA 40 MG TABLET (FP) GT SCH (23:39)
[2023-01-28] MEDS: MELATONIN 5 MG TABLETS GT SCH (23:40)
[2023-01-28] MEDS: FINASTERIDE 5 MG TABLET (FP) GT SCH (23:41)
[2023-01-29] MEDS: MEROPENEM 1 GM in DEXTROSE 5%-WATER 100 ML IVPB SCH (06:10)
[2023-01-29 09:10] LABS: BASO % 0.3 % (0-2.0); EOS % 1.1 % (0-4.5); HEMATOCRIT 31.7 % (35.4-49); HEMOGLOBIN 10.6 GM/dL (11.7-16.9); LYMPH % 5.6 % (8-40); MCH 29.1 pg (25.7-33.7); MCHC 33.4 g/dl (32.0-35.9); MEAN CELL VOLUME 87.3 fl (80-96); PLATELET COUNT 320 10^3/uL (134-434); RBC 3.63 M/mm3 (4.00-5.60); RDW 14.3 % (11.9-15.9); WHITE BLOOD COUNT 13.2 K/mm3 (4.0-10.0)
[2023-01-29 09:28] LABS: POTASSIUM 4.1 mmol/L (3.5-5.1)
[2023-01-29 09:40] LABS: CALCIUM 9.4 mg/dL (8.5-10.1)
[2023-01-29 09:41] LABS: ALBUMIN 2.9 g/dl (3.4-5.0); BLOOD UREA NITROGEN 36.4 mg/dL (7-18)
[2023-01-29 09:45] LABS: BILIRUBIN,TOTAL 0.4 mg/dL (0.2-1); TOT PROT 6.1 g/dl (6.4-8.2)
[2023-01-29] MEDS: CALCIUM 500MG/VIT-D 200 UNITS COMBO TABLET (FP) GT SCH (10:39)
[2023-01-29] MEDS: PANTOPRAZOLE SODIUM 40 MG VIAL IVPUSH SCH (10:41)
[2023-01-29] MEDS: METOPROLOL TARTRATE 25 MG TABLET (FP) GT SCH ×2 (10:41→21:33)
[2023-01-29] MEDS: MULTIVIT-MINERALS ORAL LIQUID GT SCH (10:41)
[2023-01-29] MEDS: AMINO ACIDS/PROTEIN HYDROLYS 30 ML LIQUID.PKT GT SCH (10:42)
[2023-01-29] MEDS: SERTRALINE HCL 50 MG TABLET (FP) GT SCH (10:42)
[2023-01-29] MEDS: ASCORBIC ACID 500 MG/5 ML UNIT DOSE CUP GT SCH ×2 (10:42→21:35)
[2023-01-29] MEDS: BUDESONIDE/FORMETEROL FUMARATE 80/4.5 mcg INHALER IH SCH ×2 (10:43→21:35)
[2023-01-29] MEDS: ATORVASTATIN CA 40 MG TABLET (FP) GT SCH (21:34)
[2023-01-29] MEDS: FINASTERIDE 5 MG TABLET (FP) GT SCH (21:34)
[2023-01-29] MEDS: MELATONIN 5 MG TABLETS GT SCH (21:34)
[2023-01-30] MEDS ORDERED: MEROPENEM 1 GM in DEXTROSE 5%-WATER 100 ML IVPB SCH (09:30)
[2023-01-30] MEDS: ASCORBIC ACID 500 MG/5 ML UNIT DOSE CUP GT SCH ×2 (10:06→21:55)
[2023-01-30] MEDS: SERTRALINE HCL 50 MG TABLET (FP) GT SCH (10:06)
[2023-01-30] MEDS: PANTOPRAZOLE SODIUM 40 MG VIAL IVPUSH SCH (10:06)
[2023-01-30] MEDS: CALCIUM 500MG/VIT-D 200 UNITS COMBO TABLET (FP) GT SCH (10:06)
[2023-01-30] MEDS: MULTIVIT-MINERALS ORAL LIQUID GT SCH (10:09)
[2023-01-30] MEDS: AMINO ACIDS/PROTEIN HYDROLYS 30 ML LIQUID.PKT GT SCH (10:10)
[2023-01-30] MEDS: METOPROLOL TARTRATE 25 MG TABLET (FP) GT SCH ×2 (10:17→21:50)
[2023-01-30] MEDS: BUDESONIDE/FORMETEROL FUMARATE 80/4.5 mcg INHALER IH SCH ×2 (10:25→21:54)
[2023-01-30] MEDS: ATORVASTATIN CA 40 MG TABLET (FP) GT SCH (21:49)
[2023-01-30] MEDS: MELATONIN 5 MG TABLETS GT SCH (21:49)
[2023-01-30] MEDS: FINASTERIDE 5 MG TABLET (FP) GT SCH (21:49)
[2023-01-30] MEDS: MEROPENEM 1 GM in DEXTROSE 5%-WATER 100 ML IVPB SCH (21:54)
[2023-01-31 07:55] LABS: BASO % 0.3 % (0-2.0); EOS % 1.8 % (0-4.5); HEMOGLOBIN 10.3 GM/dL (11.7-16.9); LYMPH % 4.9 % (8-40); MCH 28.5 pg (25.7-33.7); MCHC 32.2 g/dl (32.0-35.9); MEAN CELL VOLUME 88.7 fl (80-96); MEAN PLT VOLUME 7.1 fl (7.5-11.1); MONO % 8.5 % (3.8-10.2); NEUT % 84.5 % (42.8-82.8); PLATELET COUNT 341 10^3/uL (134-434); RBC 3.61 M/mm3 (4.00-5.60); RDW 13.9 % (11.9-15.9); WHITE BLOOD COUNT 13.3 K/mm3 (4.0-10.0)
[2023-01-31 08:08] LABS: POTASSIUM 4.4 mmol/L (3.5-5.1)
[2023-01-31 08:14] LABS: ALBUMIN 2.7 g/dl (3.4-5.0); CALCIUM 9.5 mg/dL (8.5-10.1)
[2023-01-31 08:19] LABS: BILIRUBIN,TOTAL 0.4 mg/dL (0.2-1)
[2023-01-31] MEDS: MEROPENEM 1 GM in DEXTROSE 5%-WATER 100 ML IVPB SCH ×2 (10:18→21:37)
[2023-01-31] MEDS: MULTIVIT-MINERALS ORAL LIQUID GT SCH (10:18)
[2023-01-31] MEDS: METOPROLOL TARTRATE 25 MG TABLET (FP) GT SCH ×2 (10:18→21:38)
[2023-01-31] MEDS: CALCIUM 500MG/VIT-D 200 UNITS COMBO TABLET (FP) GT SCH (10:18)
[2023-01-31] MEDS: AMINO ACIDS/PROTEIN HYDROLYS 30 ML LIQUID.PKT GT SCH (10:19)
[2023-01-31] MEDS: PANTOPRAZOLE SODIUM 40 MG VIAL IVPUSH SCH (10:19)
[2023-01-31] MEDS: ASCORBIC ACID 500 MG/5 ML UNIT DOSE CUP GT SCH ×2 (10:19→21:38)
[2023-01-31] MEDS: BUDESONIDE/FORMETEROL FUMARATE 80/4.5 mcg INHALER IH SCH ×2 (10:20→21:39)
[2023-01-31] MEDS: SERTRALINE HCL 50 MG TABLET (FP) GT SCH (10:20)
[2023-01-31] MEDS: MELATONIN 5 MG TABLETS GT SCH (21:38)
[2023-01-31] MEDS: FINASTERIDE 5 MG TABLET (FP) GT SCH (21:38)
[2023-01-31] MEDS: ATORVASTATIN CA 40 MG TABLET (FP) GT SCH (21:38)
[2023-01-31 23:59] VITALS: BMI 15.3
[2023-02-01] MEDS: PANTOPRAZOLE SODIUM 40 MG VIAL IVPUSH SCH (10:57)
[2023-02-01] MEDS: SERTRALINE HCL 50 MG TABLET (FP) GT SCH (10:57)
[2023-02-01] MEDS: BUDESONIDE/FORMETEROL FUMARATE 80/4.5 mcg INHALER IH SCH ×2 (11:02→22:30)
[2023-02-01] MEDS: ASCORBIC ACID 500 MG/5 ML UNIT DOSE CUP GT SCH ×2 (11:04→22:23)
[2023-02-01] MEDS: CALCIUM 500MG/VIT-D 200 UNITS COMBO TABLET (FP) GT SCH (11:04)
[2023-02-01] MEDS: AMINO ACIDS/PROTEIN HYDROLYS 30 ML LIQUID.PKT GT SCH (11:05)
[2023-02-01] MEDS: MULTIVIT-MINERALS ORAL LIQUID GT SCH (11:05)
[2023-02-01] MEDS: ACETAMINOPHEN 650 MG/20.3 ML ORAL SOLUTION (CUPS) GT PRN (11:33)
[2023-02-01] MEDS: MEROPENEM 1 GM in DEXTROSE 5%-WATER 100 ML IVPB SCH ×2 (11:53→22:23)
[2023-02-01] MEDS: METOPROLOL TARTRATE 25 MG TABLET (FP) GT SCH ×2 (12:01→22:23)
[2023-02-01] MEDS: FINASTERIDE 5 MG TABLET (FP) GT SCH (22:23)
[2023-02-01] MEDS: ATORVASTATIN CA 40 MG TABLET (FP) GT SCH (22:23)
[2023-02-01] MEDS: MELATONIN 5 MG TABLETS GT SCH (22:23)
[2023-02-02] MEDS: AMINO ACIDS/PROTEIN HYDROLYS 30 ML LIQUID.PKT GT SCH (08:15)
[2023-02-02] MEDS: MULTIVIT-MINERALS ORAL LIQUID GT SCH (09:09)
[2023-02-02] MEDS: CALCIUM 500MG/VIT-D 200 UNITS COMBO TABLET (FP) GT SCH (09:09)
[2023-02-02] MEDS: ASCORBIC ACID 500 MG/5 ML UNIT DOSE CUP GT SCH ×2 (09:09→22:16)
[2023-02-02] MEDS: SERTRALINE HCL 50 MG TABLET (FP) GT SCH (09:09)
[2023-02-02] MEDS: PANTOPRAZOLE SODIUM 40 MG VIAL IVPUSH SCH (09:09)
[2023-02-02] MEDS: METOPROLOL TARTRATE 25 MG TABLET (FP) GT SCH ×2 (09:10→22:17)
[2023-02-02] MEDS: MEROPENEM 1 GM in DEXTROSE 5%-WATER 100 ML IVPB SCH ×2 (09:10→22:17)
[2023-02-02] MEDS: BUDESONIDE/FORMETEROL FUMARATE 80/4.5 mcg INHALER IH SCH ×2 (09:15→22:19)
[2023-02-02 09:33] LABS: BASO % 0.4 % (0-2.0); EOS % 2.1 % (0-4.5); HEMATOCRIT 30.8 % (35.4-49); LYMPH % 5.6 % (8-40); MCH 28.9 pg (25.7-33.7); MCHC 32.3 g/dl (32.0-35.9); MEAN CELL VOLUME 89.3 fl (80-96); MEAN PLT VOLUME 6.9 fl (7.5-11.1); MONO % 6.2 % (3.8-10.2); NEUT % 85.7 % (42.8-82.8); PLATELET COUNT 362 10^3/uL (134-434); RBC 3.45 M/mm3 (4.00-5.60); RDW 14.3 % (11.9-15.9); WHITE BLOOD COUNT 11.4 K/mm3 (4.0-10.0)
[2023-02-02 09:52] LABS: POTASSIUM 4.5 mmol/L (3.5-5.1)
[2023-02-02 09:58] LABS: CALCIUM 9.5 mg/dL (8.5-10.1)
[2023-02-02 09:59] LABS: ALBUMIN 2.7 g/dl (3.4-5.0); BLOOD UREA NITROGEN 46.4 mg/dL (7-18)
[2023-02-02 10:01] LABS: BILIRUBIN,TOTAL 0.3 mg/dL (0.2-1)
[2023-02-02 10:02] LABS: TOT PROT 5.9 g/dl (6.4-8.2)
[2023-02-02] MEDS: MELATONIN 5 MG TABLETS GT SCH (22:16)
[2023-02-02] MEDS: FINASTERIDE 5 MG TABLET (FP) GT SCH (22:16)
[2023-02-02] MEDS: ATORVASTATIN CA 40 MG TABLET (FP) GT SCH (22:17)
[2023-02-03] MEDS: SERTRALINE HCL 50 MG TABLET (FP) GT SCH (10:30)
[2023-02-03] MEDS: METOPROLOL TARTRATE 25 MG TABLET (FP) GT SCH ×2 (10:30→22:23)
[2023-02-03] MEDS: CALCIUM 500MG/VIT-D 200 UNITS COMBO TABLET (FP) GT SCH (10:30)
[2023-02-03] MEDS: AMINO ACIDS/PROTEIN HYDROLYS 30 ML LIQUID.PKT GT SCH (10:30)
[2023-02-03] MEDS: MULTIVIT-MINERALS ORAL LIQUID GT SCH (10:31)
[2023-02-03] MEDS: PANTOPRAZOLE SODIUM 40 MG VIAL IVPUSH SCH (10:31)
[2023-02-03] MEDS: MEROPENEM 1 GM in DEXTROSE 5%-WATER 100 ML IVPB SCH ×2 (10:31→22:23)
[2023-02-03] MEDS: ASCORBIC ACID 500 MG/5 ML UNIT DOSE CUP GT SCH ×2 (10:32→22:24)
[2023-02-03] MEDS: BUDESONIDE/FORMETEROL FUMARATE 80/4.5 mcg INHALER IH SCH ×2 (10:33→22:24)
[2023-02-03] MEDS: MELATONIN 5 MG TABLETS GT SCH (22:23)
[2023-02-03] MEDS: FINASTERIDE 5 MG TABLET (FP) GT SCH (22:23)
[2023-02-03] MEDS: ATORVASTATIN CA 40 MG TABLET (FP) GT SCH (22:23)
[2023-02-04] MEDS: AMINO ACIDS/PROTEIN HYDROLYS 30 ML LIQUID.PKT GT SCH ×3 (08:58→17:52)
[2023-02-04] MEDS: MEROPENEM 1 GM in DEXTROSE 5%-WATER 100 ML IVPB SCH ×2 (09:57→21:31)
[2023-02-04] MEDS: CALCIUM 500MG/VIT-D 200 UNITS COMBO TABLET (FP) GT SCH (09:57)
[2023-02-04] MEDS: PANTOPRAZOLE SODIUM 40 MG VIAL IVPUSH SCH (09:57)
[2023-02-04] MEDS: METOPROLOL TARTRATE 25 MG TABLET (FP) GT SCH ×2 (09:57→21:30)
[2023-02-04] MEDS: SERTRALINE HCL 50 MG TABLET (FP) GT SCH (09:57)
[2023-02-04] MEDS: MULTIVIT-MINERALS ORAL LIQUID GT SCH (09:58)
[2023-02-04] MEDS: ASCORBIC ACID 500 MG/5 ML UNIT DOSE CUP GT SCH ×2 (09:58→21:33)
[2023-02-04] MEDS: BUDESONIDE/FORMETEROL FUMARATE 80/4.5 mcg INHALER IH SCH ×2 (09:59→21:32)
[2023-02-04] MEDS: ATORVASTATIN CA 40 MG TABLET (FP) GT SCH (21:30)
[2023-02-04] MEDS: FINASTERIDE 5 MG TABLET (FP) GT SCH (21:31)
[2023-02-04] MEDS: MELATONIN 5 MG TABLETS GT SCH (21:31)
[2023-02-05] MEDS: ASCORBIC ACID 500 MG/5 ML UNIT DOSE CUP GT SCH ×2 (09:21→21:48)
[2023-02-05] MEDS: SERTRALINE HCL 50 MG TABLET (FP) GT SCH (09:21)
[2023-02-05] MEDS: AMINO ACIDS/PROTEIN HYDROLYS 30 ML LIQUID.PKT GT SCH ×2 (09:21→18:21)
[2023-02-05] MEDS: PANTOPRAZOLE SODIUM 40 MG VIAL IVPUSH SCH (09:21)
[2023-02-05] MEDS: CALCIUM 500MG/VIT-D 200 UNITS COMBO TABLET (FP) GT SCH (09:21)
[2023-02-05] MEDS: MEROPENEM 1 GM in DEXTROSE 5%-WATER 100 ML IVPB SCH ×2 (09:21→21:47)
[2023-02-05] MEDS: METOPROLOL TARTRATE 25 MG TABLET (FP) GT SCH ×2 (09:21→21:47)
[2023-02-05] MEDS: MULTIVIT-MINERALS ORAL LIQUID GT SCH (09:22)
[2023-02-05] MEDS: BUDESONIDE/FORMETEROL FUMARATE 80/4.5 mcg INHALER IH SCH ×2 (09:22→21:47)
[2023-02-05 17:08] LABS: BASO % 0.3 % (0-2.0); EOS % 2.6 % (0-4.5); HEMATOCRIT 29.7 % (35.4-49); HEMOGLOBIN 9.9 GM/dL (11.7-16.9); LYMPH % 8.7 % (8-40); MCH 29.1 pg (25.7-33.7); MCHC 33.3 g/dl (32.0-35.9); MEAN CELL VOLUME 87.4 fl (80-96); MEAN PLT VOLUME 6.5 fl (7.5-11.1); MONO % 8.2 % (3.8-10.2); NEUT % 80.2 % (42.8-82.8); PLATELET COUNT 358 10^3/uL (134-434); RDW 14.2 % (11.9-15.9); WHITE BLOOD COUNT 9.5 K/mm3 (4.0-10.0)
[2023-02-05] MEDS: ZINC SULFATE 220 MG CAPSULE (FP) GT SCH (17:21)
[2023-02-05 17:27] LABS: POTASSIUM 4.8 mmol/L (3.5-5.1)
[2023-02-05 17:29] LABS: CALCIUM 9.3 mg/dL (8.5-10.1)
[2023-02-05 17:30] LABS: ALBUMIN 2.7 g/dl (3.4-5.0); BLOOD UREA NITROGEN 55.8 mg/dL (7-18)
[2023-02-05 17:32] LABS: CREATININE 0.9 mg/dL (0.55-1.3)
[2023-02-05 17:35] LABS: BILIRUBIN,TOTAL 0.2 mg/dL (0.2-1)
[2023-02-05] MEDS: ACETAMINOPHEN 650 MG/20.3 ML ORAL SOLUTION (CUPS) GT PRN (18:22)
[2023-02-05] MEDS: MELATONIN 5 MG TABLETS GT SCH (21:47)
[2023-02-05] MEDS: FINASTERIDE 5 MG TABLET (FP) GT SCH (21:47)
[2023-02-05] MEDS: ATORVASTATIN CA 40 MG TABLET (FP) GT SCH (21:47)
[2023-02-06 05:33] VITALS: RESP 18
[2023-02-06] MEDS: AMINO ACIDS/PROTEIN HYDROLYS 30 ML LIQUID.PKT GT SCH ×2 (08:50→16:33)
[2023-02-06] MEDS: METOPROLOL TARTRATE 25 MG TABLET (FP) GT SCH (09:51)
[2023-02-06] MEDS: CALCIUM 500MG/VIT-D 200 UNITS COMBO TABLET (FP) GT SCH (09:51)
[2023-02-06] MEDS: SERTRALINE HCL 50 MG TABLET (FP) GT SCH (09:51)
[2023-02-06] MEDS: ZINC SULFATE 220 MG CAPSULE (FP) GT SCH (09:51)
[2023-02-06] MEDS: ASCORBIC ACID 500 MG/5 ML UNIT DOSE CUP GT SCH (09:52)
[2023-02-06] MEDS: PANTOPRAZOLE SODIUM 40 MG VIAL IVPUSH SCH (09:52)
[2023-02-06] MEDS: MULTIVIT-MINERALS ORAL LIQUID GT SCH (09:52)
[2023-02-06] MEDS: BUDESONIDE/FORMETEROL FUMARATE 80/4.5 mcg INHALER IH SCH (09:57)
[2023-02-06 14:00] VITALS: BP 112/54; PULSE 63; TEMP 98.3
== END 2023-02-06 19:00 | DRG 698 ==
LOC: JER 01:34 → JERBED 01:48 → J6S 08:07 → OBSVTOIN 01-29 13:32 → J6S 02-01 15:05
PROVIDERS: ADMIT Internal Medicine; ATTEND Internal Medicine
PROC: 0B21XFZ Change Tracheostomy Device in Trachea, External Approach (ICD-10-PCS; principal; 2023-01-30)
PROC: 0CJS8ZZ Inspection of Larynx, Via Natural or Artificial Opening Endoscopic (ICD-10-PCS; 2023-01-30)
DX: T83.511A Infection and inflammatory reaction due to indwelling urethral catheter, initial encounter (principal); E43 Unspecified severe protein-calorie malnutrition; F20.89 Other schizophrenia; J96.10 Chronic respiratory failure, unspecified whether with hypoxia or hypercapnia; G72.89 Other specified myopathies; K21.9 Gastro-esophageal reflux disease without esophagitis; I48.91 Unspecified atrial fibrillation; R64 Cachexia; E78.5 Hyperlipidemia, unspecified; Z68.1 Body mass index [BMI] 19.9 or less, adult; J44.9 Chronic obstructive pulmonary disease, unspecified; N40.0 Benign prostatic hyperplasia without lower urinary tract symptoms; D64.9 Anemia, unspecified; N36.8 Other specified disorders of urethra; D72.829 Elevated white blood cell count, unspecified; F32.9 Major depressive disorder, single episode, unspecified; Y84.6 Urinary catheterization as the cause of abnormal reaction of the patient, or of later complication, without mention of misadventure at the time of the procedure; N39.0 Urinary tract infection, site not specified; R49.0 Dysphonia; R13.14 Dysphagia, pharyngoesophageal phase; K40.90 Unilateral inguinal hernia, without obstruction or gangrene, not specified as recurrent; J39.8 Other specified diseases of upper respiratory tract; B96.4 Proteus (mirabilis) (morganii) as the cause of diseases classified elsewhere; Z93.0 Tracheostomy status; Z93.1 Gastrostomy status; Z86.73 Personal history of transient ischemic attack (TIA), and cerebral infarction without residual deficits
CPT/HCPCS: 36415; 71045-TC-FY; 74230-TC-FY; 80053; 81003; 85025; 87040; 87086; 87186; 92611-GN; 93005; 93010; 94640; 99285-25; G0378

== ENCOUNTER 2024-05-27 00:39 | Emergency (ER) | payer OTHER ==
[2024-05-27 01:03] VITALS: BP 120/64; PULSE 71; RESP 18; TEMP 97.5; BMI 18.3
== END 2024-05-27 06:24 | disposition home or self-care (01) ==
LOC: JER 00:39
DX: J95.03 Malfunction of tracheostomy stoma (principal); R05.9 Cough, unspecified
CPT/HCPCS: 99283-25

== ENCOUNTER 2025-04-01 20:11 | Inpatient (IN) | payer OTHER ==
[2025-04-01] MEDS: ALBUTEROL SO4 0.083% IH SOL 2.5 MG/3 ML VIAL.NEB. NEB SCH (20:40)
[2025-04-01] MEDS ORDERED: ALBUTEROL SO4 2.5/IPRATROPIUM 0.5 INH SOL 3 ML VIAL.NEB. NEB ONE ×2 (20:41→21:45)
[2025-04-01 21:35] LABS: ABSOLUTE IMMATURE GRANULOCYTES 0.04 x10^3/uL (0.0-0.031); BASOPHILS # 0.03 x10^3/uL (0.01-0.08); EOSINOPHIL % 2.6 % (0.8-7.0); EOSINOPHILS # 0.24 x10^3/uL (0.04-0.54); MCHC 31.2 g/dl (32.3-36.5); MEAN CELL VOLUME 91.0 fl (79.0-92.2); MEAN PLT VOLUME 9.1 fl (9.4-12.4); MONOCYTE # 0.84 x10^3/uL (0.30-0.82); MONOCYTE % 9.2 % (5.3-12.2); RDW 14.0 % (12.2-16.6)
[2025-04-01 22:06] LABS: GLUCOSE,RANDOM 179.0 mg/dL (74-106); TOT PROT 6.5 g/dl (6.4-8.2)
[2025-04-01 22:07] LABS: CO2 31.0 mmol/L (21-32)
[2025-04-01 22:08] LABS: ALK PHOS 91.0 U/L (40-150)
[2025-04-01 22:11] LABS: CREATININE 1.33 mg/dL (0.55-1.3); SGOT/AST 21.0 U/L (5-34); SGPT/ALT 12.0 U/L (0-55)
[2025-04-01 22:18] LABS: N-TERMINAL BNP 268.4 pg/mL (0-299.9)
[2025-04-01 22:32] LABS: HIV INTERPRETATION NEGATIVE (NEGATIVE)
[2025-04-01 23:41] LABS: HCV DIAGNOSTIC IN-HOUSE W/RFLX REACTIVE (NONREACTIVE)
[2025-04-02] MEDS ORDERED: DEXAMETHASONE SOD PHOSPHATE 10 MG/1 ML VIAL ONE (00:21)
[2025-04-02] MEDS: DEXAMETHASONE SOD PHOSPHATE 10 MG/1 ML VIAL IVPUSH ONE (00:35)
[2025-04-02] MEDS: SODIUM CHLORIDE 1,000 ML IV STA (00:35)
[2025-04-02] MEDS: BUDESONIDE 0.5 MG/2 ML INH SUSP VIAL NEB ONE (00:54)
[2025-04-02 06:39] LABS: GLUCOSE,RANDOM 127.0 mg/dL (74-106)
[2025-04-02 06:41] LABS: CO2 25.0 mmol/L (21-32)
[2025-04-02 06:45] LABS: CREATININE 1.05 mg/dL (0.55-1.3)
[2025-04-02 06:54] LABS: MCHC 31.6 g/dl (32.3-36.5); MEAN CELL VOLUME 91.3 fl (79.0-92.2); MEAN PLT VOLUME 9.3 fl (9.4-12.4); RDW 14.2 % (12.2-16.6)
[2025-04-02] MEDS: SERTRALINE HCL 50 MG TABLET (FP) PO SCH (09:47)
[2025-04-02] MEDS: methylPREDNISolone NA SUCC 40 MG/1 ML VIAL IVPUSH SCH (09:48)
[2025-04-02] MEDS: METOPROLOL TARTRATE 25 MG TABLET (FP) PO SCH (09:48)
[2025-04-02 13:41] VITALS: BMI 14.5
[2025-04-02] MEDS: FINASTERIDE 5 MG TABLET (FP) PO SCH (21:47)
[2025-04-03 07:12] LABS: MCHC 30.5 g/dl (32.3-36.5); MEAN CELL VOLUME 91.9 fl (79.0-92.2); MEAN PLT VOLUME 9.3 fl (9.4-12.4); RDW 14.2 % (12.2-16.6)
[2025-04-03 07:41] LABS: GLUCOSE,RANDOM 121.0 mg/dL (74-106); TOT PROT 6.8 g/dl (6.4-8.2)
[2025-04-03 07:42] LABS: CO2 27.0 mmol/L (21-32)
[2025-04-03 07:44] LABS: ALK PHOS 77.0 U/L (40-150)
[2025-04-03 07:47] LABS: CREATININE 0.98 mg/dL (0.55-1.3); SGOT/AST 22.0 U/L (5-34); SGPT/ALT 13.0 U/L (0-55)
[2025-04-03] MEDS: MULTIVITAMINS (DAILY MVI) TABLET (FP) PO SCH (09:43)
[2025-04-03] MEDS: methylPREDNISolone NA SUCC 40 MG/1 ML VIAL IVPUSH SCH (22:58)
[2025-04-04] MEDS: ALBUTEROL SO4 2.5/IPRATROPIUM 0.5 INH SOL 3 ML VIAL.NEB. NEB PRN (07:15)
[2025-04-05 06:50] LABS: MCHC 30.5 g/dl (32.3-36.5); MEAN CELL VOLUME 94.3 fl (79.0-92.2); MEAN PLT VOLUME 9.0 fl (9.4-12.4); RDW 14.3 % (12.2-16.6)
[2025-04-05 07:25] LABS: GLUCOSE,RANDOM 107.0 mg/dL (74-106); TOT PROT 6.2 g/dl (6.4-8.2)
[2025-04-05 07:26] LABS: CO2 29.0 mmol/L (21-32)
[2025-04-05 07:27] LABS: ALK PHOS 79.0 U/L (40-150)
[2025-04-05 07:30] LABS: CREATININE 0.99 mg/dL (0.55-1.3); SGOT/AST 18.0 U/L (5-34); SGPT/ALT 13.0 U/L (0-55)
[2025-04-05] MEDS ORDERED: SENNOSIDES 8.6MG TABLET (FP) PO PRN (21:06)
[2025-04-05] MEDS: ASCORBIC ACID 500 MG TABLET (FP) PO SCH (21:44)
[2025-04-05] MEDS: ATORVASTATIN CA 40 MG TABLET (FP) PO SCH (21:44)
[2025-04-05] MEDS ORDERED: SALMETEROL PO SCH (22:00)
[2025-04-05] MEDS ORDERED: FLUTICASONE PROPION PO SCH (22:00)
[2025-04-05] MEDS ORDERED: [UNRECOGNIZED DRUG - OTHER] PO SCH (22:00)
[2025-04-05] MEDS ORDERED: APIXABAN 5 MG TABLET PO SCH (22:00)
[2025-04-06 06:35] VITALS: RESP 18
[2025-04-06 07:18] LABS: ABSOLUTE IMMATURE GRANULOCYTES 0.06 x10^3/uL (0.0-0.031); BASOPHILS # 0.02 x10^3/uL (0.01-0.08); EOSINOPHIL % 0.9 % (0.8-7.0); EOSINOPHILS # 0.12 x10^3/uL (0.04-0.54); MCHC 30.0 g/dl (32.3-36.5); MEAN CELL VOLUME 95.4 fl (79.0-92.2); MEAN PLT VOLUME 9.4 fl (9.4-12.4); MONOCYTE # 1.08 x10^3/uL (0.30-0.82); MONOCYTE % 8.2 % (5.3-12.2); RDW 14.5 % (12.2-16.6)
[2025-04-06 07:42] LABS: GLUCOSE,RANDOM 88.0 mg/dL (74-106)
[2025-04-06 07:44] LABS: CO2 29.0 mmol/L (21-32)
[2025-04-06 07:47] LABS: CREATININE 0.95 mg/dL (0.55-1.3)
[2025-04-06] MEDS: predniSONE 20 MG TABLET (UD) PO SCH (10:07)
[2025-04-06] MEDS: AMINO ACIDS/PROTEIN HYDROLYS 30 ML LIQUID.PKT NGT SCH (10:08)
[2025-04-06 15:07] VITALS: BP 147/80; PULSE 75; TEMP 98
== END 2025-04-06 18:24 | DRG 205 ==
LOC: JER 20:11 → JERBED 23:42 → J4W 04-02 04:03 → OBSVTOIN 04-02 13:44
PROVIDERS: ADMIT Internal Medicine; ATTEND Internal Medicine
DX: J95.03 Malfunction of tracheostomy stoma (principal); E43 Unspecified severe protein-calorie malnutrition; J96.11 Chronic respiratory failure with hypoxia; J44.1 Chronic obstructive pulmonary disease with (acute) exacerbation; R64 Cachexia; Z68.1 Body mass index [BMI] 19.9 or less, adult; K21.9 Gastro-esophageal reflux disease without esophagitis; Y83.9 Surgical procedure, unspecified as the cause of abnormal reaction of the patient, or of later complication, without mention of misadventure at the time of the procedure
CPT/HCPCS: 36415; 70360-TC-FY; 71045-TC-FY; 80048; 80053; 83605; 83880; 85025; 86803; 87040; 87389; 87522; 87637-QW; 93005; 93010; 94640; 99285-25; G0378; J1100